=== PATIENT | male | born 1950 | race Caucasian/White ===

== ENCOUNTER 2016-05-16 09:09 | Outpatient (CLI) | payer MEDICARE, OTHER ==
[~2016-05-16 09:09] MED LIST: ACETAMINOPHEN 325 MG TABLET PO PRN; DIPHENHYDRAMINE HCL 50 MG/ML VIAL IV PRN; NORMAL SALINE 250 ML IV PRN; RITUXIMAB 1,000 MG in NORMAL SALINE 500 ML IV PRN
[2016-05-16 09:27] VITALS: BP 166/105
== END 2016-05-16 14:22 | disposition home or self-care (01) ==
LOC: II 09:09 → 5TH 09:15 → II 14:22
PROVIDERS: ATTEND Internal Medicine
PROC: 3E0330M Introduction of Antineoplastic, Monoclonal Antibody, into Peripheral Vein, Percutaneous Approach (ICD-10-PCS; principal; 2016-05-16)
DX: M06.9 Rheumatoid arthritis, unspecified (principal)
CPT/HCPCS: 96413; 96415; 96375; A9270; J1200; J7040; J9310; 96365; 96366

== ENCOUNTER 2016-06-03 07:49 | Outpatient (CLI) | payer MEDICARE, OTHER ==
[2016-06-03] MEDS: NORMAL SALINE 250 ML IV PRN ×2 (08:36→08:50)
[2016-06-03 08:38] VITALS: BP 116/77
== END 2016-06-03 13:39 | disposition hospice, inpatient (51) ==
LOC: II 07:49 → 5TH 07:52 → II 13:39
PROVIDERS: ATTEND Internal Medicine
PROC: 3E0330M Introduction of Antineoplastic, Monoclonal Antibody, into Peripheral Vein, Percutaneous Approach (ICD-10-PCS; principal; 2016-06-03)
PROC: 3E0330M Introduction of Antineoplastic, Monoclonal Antibody, into Peripheral Vein, Percutaneous Approach (ICD-10-PCS; 2016-06-03)
PROC: 3E0330M Introduction of Antineoplastic, Monoclonal Antibody, into Peripheral Vein, Percutaneous Approach (ICD-10-PCS; 2016-06-03)
PROC: 3E033GC Introduction of Other Therapeutic Substance into Peripheral Vein, Percutaneous Approach (ICD-10-PCS; 2016-06-03)
DX: M06.9 Rheumatoid arthritis, unspecified (principal)
CPT/HCPCS: 96413; 96415; 96375; A9270; J1200; J7040; J9310

== ENCOUNTER → 2016-09-11 | Outpatient (CLI) | payer MEDICARE, OTHER ==
[2016-09-11 16:43] LABS: ABSOLUTE BASOPHILS # (AUTO) 0.1 10^3/uL (0.0-0.2); ABSOLUTE EOSINOPHILS # (AUTO) 0.4 10^3/uL (0.0-0.6); ABSOLUTE LYMPHOCYTES (AUTO) 1.1 10^3/uL (0.5-4.7); ABSOLUTE MONOCYTES (AUTO) 1.3 10^3/uL (0.1-1.4); ABSOLUTE NEUT (AUTO) 8.1 10^3/uL (1.7-8.2); BASOPHILS % (AUTO) 0.9 % (0-2); EOSINOPHILS % (AUTO) 3.4 % (0-6); HEMATOCRIT 40.6 % (37.9-51.0); HEMOGLOBIN 13.6 g/dL (13.5-17.0); HGB HCT DIFFERENCE 0.2; LYMPHOCYTES % (AUTO) 9.9 % (13-45); MEAN CORPUSCULAR HEMOGLOBIN 28.8 pg (27.0-33.4); MEAN CORPUSCULAR HGB CONC 33.4 g/dL (32.0-36.0); MEAN CORPUSCULAR VOLUME 86 fl (80-97); MONOCYTES % (AUTO) 11.7 % (3-13); RED BLOOD COUNT 4.71 10^6/uL (4.35-5.55); RED CELL DISTRIBUTION WIDTH 13.9 % (11.5-14.0); SEGMENTED NEUTROPHILS % (AUTO) 74.1 % (42-78); WHITE BLOOD COUNT 10.9 10^3/uL (4.0-10.5)
== END ==
LOC: OD 16:08
PROVIDERS: ATTEND Internal Medicine Pulmonary Disease
DX: R05 Cough (principal)
CPT/HCPCS: 36415; 71020; 85025; 87070; 87205

== ENCOUNTER 2016-11-04 07:45 | Outpatient (CLI) | payer MEDICARE, OTHER ==
[2016-11-04 08:55] VITALS: BP 131/69
== END 2016-11-04 13:26 | disposition home or self-care (01) ==
LOC: II 07:45 → 5TH 07:57 → II 13:26
PROVIDERS: ATTEND Internal Medicine
PROC: 3E0330M Introduction of Antineoplastic, Monoclonal Antibody, into Peripheral Vein, Percutaneous Approach (ICD-10-PCS; principal; 2016-11-04)
PROC: 3E033GC Introduction of Other Therapeutic Substance into Peripheral Vein, Percutaneous Approach (ICD-10-PCS; 2016-11-04)
DX: M06.9 Rheumatoid arthritis, unspecified (principal)
CPT/HCPCS: 96413; 96415; 96374; 96417; A9270; J1200; J7040; J9310; 96375

== ENCOUNTER 2016-11-18 07:42 | Outpatient (CLI) | payer MEDICARE, OTHER ==
[2016-11-18 08:13] VITALS: BP 149/79
== END 2016-11-18 12:16 | disposition home or self-care (01) ==
LOC: II 07:42 → 5TH 07:45 → II 12:16
PROVIDERS: ATTEND Internal Medicine
PROC: 3E0330M Introduction of Antineoplastic, Monoclonal Antibody, into Peripheral Vein, Percutaneous Approach (ICD-10-PCS; principal; 2016-11-18)
PROC: 3E033GC Introduction of Other Therapeutic Substance into Peripheral Vein, Percutaneous Approach (ICD-10-PCS; 2016-11-18)
DX: M06.9 Rheumatoid arthritis, unspecified (principal)
CPT/HCPCS: 96413; 96415; 96375; A9270; J1200; J7040; J9310

== ENCOUNTER → 2017-03-06 | Outpatient (CLI) | payer MEDICARE, OTHER ==
[2017-03-06 11:01] LABS: ABSOLUTE BASOPHILS # (AUTO) 0.1 10^3/uL (0.0-0.2); ABSOLUTE EOSINOPHILS # (AUTO) 0.2 10^3/uL (0.0-0.6); ABSOLUTE LYMPHOCYTES (AUTO) 0.8 10^3/uL (0.5-4.7); ABSOLUTE MONOCYTES (AUTO) 0.7 10^3/uL (0.1-1.4); ABSOLUTE NEUT (AUTO) 5.5 10^3/uL (1.7-8.2); EOSINOPHILS % (AUTO) 2.5 % (0-6); HEMATOCRIT 42.4 % (37.9-51.0); HEMOGLOBIN 14.7 g/dL (13.5-17.0); HGB HCT DIFFERENCE 1.7; LYMPHOCYTES % (AUTO) 11.1 % (13-45); MEAN CORPUSCULAR HEMOGLOBIN 29.8 pg (27.0-33.4); MEAN CORPUSCULAR HGB CONC 34.7 g/dL (32.0-36.0); MEAN CORPUSCULAR VOLUME 86 fl (80-97); MONOCYTES % (AUTO) 9.7 % (3-13); RED BLOOD COUNT 4.95 10^6/uL (4.35-5.55); RED CELL DISTRIBUTION WIDTH 14.1 % (11.5-14.0); SEGMENTED NEUTROPHILS % (AUTO) 75.7 % (42-78); WHITE BLOOD COUNT 7.2 10^3/uL (4.0-10.5)
[2017-03-06 11:27] LABS: ALANINE AMINOTRANSFERASE 43 U/L (21-72); ALBUMIN 4.5 g/dL (3.5-5.0); ALKALINE PHOSPHATASE 88 U/L (38-126); AMYLASE 68 U/L (30-110); ANION GAP 11 (5-19); ASPARTATE AMINO TRANSFERASE 28 U/L (17-59); BILIRUBIN,DIRECT 0.4 mg/dL (0.0-0.4); BILIRUBIN,TOTAL 0.9 mg/dL (0.2-1.3); BLOOD UREA NITROGEN 13 mg/dL (7-20); CALCIUM 9.5 mg/dL (8.4-10.2); CARBON DIOXIDE 26 mmol/L (22-30); CHLORIDE 106 mmol/L (98-107); CHOLESTEROL 142.85 mg/dL (0-200); CREATININE RESULT 0.74 mg/dL (0.52-1.25); Direct HDL 49 mg/dL (>40); GLUCOSE 91 mg/dL (75-110); LIPASE 86.7 U/L (23-300); POTASSIUM 4.5 mmol/L (3.6-5.0); SODIUM 143.3 mmol/L (137-145); TOTAL PROTEIN 6.8 g/dL (6.3-8.2); TRIGLYCERIDES 65 mg/dL (<150)
[2017-03-06 11:38] LABS: DIRECT LDL 81 mg/dL (<100)
== END ==
LOC: OD 09:54
PROVIDERS: ATTEND Internal Medicine
DX: J44.9 Chronic obstructive pulmonary disease, unspecified (principal); R35.1 Nocturia; I48.0 Paroxysmal atrial fibrillation; R53.83 Other fatigue; E78.5 Hyperlipidemia, unspecified; R10.9 Unspecified abdominal pain; I10 Essential (primary) hypertension
CPT/HCPCS: 36415; 80053; 80061; 82150; 83690; 84153; 84443; 85025

== ENCOUNTER → 2017-03-26 | Outpatient (CLI) | payer MEDICARE, OTHER ==
--- NOTE | 2017-03-26 14:52 | RADIOLOGY REPORT (SQ) ---
EXAM DESCRIPTION: CT LUNG CANCER SCREENING COMPLETED DATE/TIME: 03/26/2017 1:42 pm REASON FOR STUDY: SMOKER (F17.200) J44.9 CHRONIC OBSTRUCTIVE PULMONARY DISEASE, UNSPECIFIED R05 CO [facility] F17.200 NICOTINE DEPENDENCE, UNSPECIFIED, UNCOMPLICATED Has the patient had a Chest CT scan within the past year? No Was the patient offered tobacco cessation counseling? Yes Was the patient engaged in shared decision making for this test? Yes Does the patient have signs or symptoms of Lung Cancer? No Is the patient a smoker? Yes How many packs per year? 365 How many years since quitting smoking? Not applicable Patients age: 66 COMPARISON: CT chest 12/18/2015 TECHNIQUE: Low Dose CT scan performed of the chest without intravenous contrast for purposes of scre ening for lung cancer. Images reviewed with lung, soft tissue and bone windows. Reconstructed coron al and sagittal MPR images reviewed. All images stored on PACS. All CT scanners at this facility use dose modulation, iterative reconstruction, and/or weight based d osing when appropriate to reduce radiation dose to as low as reasonably achievable (ALARA). [facility]: Dose Right [facility]: CareDose [facility]: Dose Right [facility]: Teradose 4D [facility]: Smart Fashion.me RADIATION DOSE: CT Rad equipment meets quality standard of care and radiation dose reduction techniq ues were employed. CTDIvol: 2.1 mGy. DLP: 91 mGy-cm. mGy. . LIMITATIONS: No technical limitations. FINDINGS: LUNG NODULES: Less than 4 mm noncalcified granulomas are present in the left lung apex ax ial image 68, unchanged from 12/18/2015. REMAINING LUNGS AND PLEURA: No pleural effusions or calcifications. No pneumothorax. Biapical p leural-parenchymal scarring, similar compared to 12/18/2015. Diffuse changes of obstructive lung dise ase. HILAR AND MEDIASTINAL STRUCTURES: No identified masses. No abnormal nodes. HEART AND VASCULAR STRUCTURES: No aortic aneurysm. No pericardial effusion. No cardiac devices. CORONARY ARTERY CALCIFICATIONS: No significant calcifications. UPPER ABDOMEN, THYROID, BONES, OTHER SOFT TISSUES: No significant findings. IMPRESSION: BENIGN FINDINGS IN THE LUNGS. NO OTHER CLINICALLY SIGNIFICANT/POTENTIALLY CLINICALLY SIGNIFICANT FINDINGS LUNGRADS: LUNGRADS: 2 BENIGN APPEARANCE OR BEHAVIOR. NODULES WITH A VERY LOW LIKELIHOOD OF BECOMING A CLINICALLY ACTIVE CANCER DUE TO SIZE OR LACK OF GROWTH. MODIFIER: NONE. RECOMMENDATION: Continue annual screening with LDCT in 12 months. COMMENT: CRITERIA: Solid nodule(s): < 6 mm; new < 4 mm. Part solid nodule(s): < 6 mm total diameter on baseline screening. Non solid nodule(s) (GGN): < 20 mm OR ? 20 and unchanged or slowly growing. Category 3 or 4 modules unchanged for ? 3 months. TECHNICAL DOCUMENTATION: JOB ID: [id number] Quality ID # [id number]: Final reports with documentation of one or more dose reduction techniques (e.g., Au tomated exposure control, adjustment of the mA and/or kV according to patient size, use of iterative reconstruction technique) 2010 [employer]
== END ==
LOC: RAD 13:23
PROVIDERS: ATTEND Internal Medicine
DX: F17.210 Nicotine dependence, cigarettes, uncomplicated (principal); J44.9 Chronic obstructive pulmonary disease, unspecified; R05 Cough
CPT/HCPCS: G0297

== ENCOUNTER 2017-04-21 10:17 | Outpatient (CLI) | payer MEDICARE, OTHER ==
[2017-04-21 15:02] VITALS: BP 150/95
== END 2017-04-21 15:09 | disposition home or self-care (01) ==
LOC: II 10:17 → 5TH 10:23 → II 15:09
PROVIDERS: ATTEND Internal Medicine
PROC: 3E0330M Introduction of Antineoplastic, Monoclonal Antibody, into Peripheral Vein, Percutaneous Approach (ICD-10-PCS; principal; 2017-04-21)
PROC: 3E033GC Introduction of Other Therapeutic Substance into Peripheral Vein, Percutaneous Approach (ICD-10-PCS; 2017-04-21)
DX: M06.9 Rheumatoid arthritis, unspecified (principal)
CPT/HCPCS: 96367; 96375; A9270; J1200; J7040; J9310; 96365; 96366

== ENCOUNTER 2017-05-05 04:09 | Inpatient (IN) | payer MEDICARE, OTHER ==
[2017-05-05] MEDS ORDERED: IPRATROPIUM/ALBUTEROL 0.5-2.5 MG/3 ML AMPUL NEB ONE ×3 (04:21→06:39)
[2017-05-05] MEDS ORDERED: METHYLPREDNISOLONE INJ 125 MG/2 ML SDV IV ONE (04:22)
--- NOTE | 2017-05-05 04:35 | ER Document Report ---
ED Respiratory Problem - General Mode of Arrival: Ambulatory Information source: Patient TRAVEL OUTSIDE OF THE [place] IN LAST 30 DAYS: No - HPI Patient complains to provider of: Short of breath Onset: Other - 2 days ago At home treatment: Bronchodilators Associated symptoms: Other - see notes above <NISHA CORREIA - Last Filed: 05/05/17 04:29> <JIHAN MEDELLIN - Last Filed: 05/05/17 06:10> - General Chief Complaint: Breathing Difficulty Stated Complaint: DIFFICULTY BREATHING Time Seen by Provider: 05/05/17 04:20 Notes: 66 year old male with history of COPD presents to the ED complaining of shortness of breath that started 2 days ago, but worsened last night. Patient reports that he had cold like symptoms 2 days ago which worsened his breathing. Patient has been taking nebulizer treatments every 3-4 hours since yesterday morning. (NISHA CORREIA) - Related Data Allergies/Adverse Reactions: No Known Allergies Allergy (Verified 04/07/16 14:21) Past Medical History - General Information source: Patient - Social History Smoking Status: Unknown if Ever Smoked Family History: Reviewed & Not Pertinent - Past Medical History Cardiac Medical History: Reports: Hx Hypercholesterolemia, Hx Hypertension Denies: Hx Heart Attack Pulmonary Medical History: Reports: Hx Asthma, Hx COPD - uses two at home nebulizer treatments every day Denies: Hx Tuberculosis Neurological Medical History: Denies: Hx Cerebrovascular Accident, Hx Seizures GI Medical History: Denies: Hx Hepatitis, Hx Hiatal Hernia, Hx Ulcer Musculoskeltal Medical History: Reports Hx Arthritis Infectious Medical History: Denies: Hx Hepatitis Past Surgical History: Reports: Hx Adenoidectomy, Hx Appendectomy, Hx Orthopedic Surgery, Hx Tonsillectomy, Hx Vascular Surgery - "vein stripping d/t blood clots" back surgery; cochlear implants. Denies: Hx Open Heart Surgery, Hx Pacemaker - Immunizations Hx Diphtheria, Pertussis, Tetanus Vaccination: Yes Hx Pneumococcal Vaccination: 02/08/11 <NISHA CORREIA - Last Filed: 05/05/17 04:29> Review of Systems - Review of Systems Constitutional: See HPI, Recent illness - cold like symptoms 2 days ago EENT: No symptoms reported Cardiovascular: No symptoms reported Respiratory: See HPI, Short of breath Gastrointestinal: No symptoms reported Genitourinary: No symptoms reported Male Genitourinary: No symptoms reported Musculoskeletal: No symptoms reported Skin: No symptoms reported Hematologic/Lymphatic: No symptoms reported Neurological/Psychological: No symptoms reported -: Yes All other systems reviewed and negative <NISHA CORREIA - Last Filed: 05/05/17 04:29> Physical Exam - Vital signs Interpretation: Hypertensive, Hypoxic, Tachypneic - General General appearance: Alert In distress: Moderate - HEENT Head: Normocephalic, Atraumatic Eyes: Normal Extraocular movements intact: Yes Pupils: PERRL - Respiratory Respiratory status: Respiratory distress - moderate respiratory distress, Retractions, Tachypnea, Tripod position Breath sounds: Wheezing - slight expiratory wheezing - Cardiovascular Rhythm: Regular Heart sounds: Normal auscultation - Abdominal Inspection: Normal - Back Back: Normal - Extremities General upper extremity: Normal inspection, Normal ROM General lower extremity: Normal inspection, Normal ROM - Neurological Neuro grossly intact: Yes Cognition: Normal Orientation: AAOx4 [place] Coma Scale Eye Opening: Spontaneous [place] Coma Scale Verbal: Oriented Nathanael Coma Scale Motor: Obeys Commands [place] Coma Scale Total: 15 Speech: Normal - Psychological Associated symptoms: Normal affect, Normal mood - Skin Skin Temperature: Warm Skin Moisture: Dry Skin Color: Normal <NISHA CORREIA - Last Filed: 05/05/17 04:29> - Vital signs Vitals: Temp Pulse Resp BP Pulse Ox 98.5 F 68 30 H 144/92 H 84 L 05/05/17 04:13 05/05/17 04:13 05/05/17 04:13 05/05/17 04:13 05/05/17 04:13 Course - Laboratory Result Diagrams: 05/05/17 04:40 05/05/17 04:40 <JIHAN MEDELLIN - Last Filed: 05/05/17 06:10> - Vital Signs Vital signs: Temp Pulse Resp BP Pulse Ox 98.5 F 68 22 H 144/92 H 100 05/05/17 04:13 05/05/17 04:13 05/05/17 05:38 05/05/17 04:13 05/05/17 05:38 - Laboratory Laboratory results interpreted by me: 05/05/17 05/05/17 05/05/17 04:40 04:40 05:23 WBC 12.2 H RDW 14.3 H Seg Neutrophils % 81.3 H Lymphocytes % 5.2 L Absolute Neutrophils 9.9 H PT 20.4 H POC Glucose 153 H Discharge <NISHA CORREIA - Last Filed: 05/05/17 04:29> - Discharge Admitting Provider: Hospitalist Unit Admitted: IMCU <JIHAN MEDELLIN - Last Filed: 05/05/17 06:10> - Discharge Clinical Impression: COPD exacerbation, Hypoxia Condition: Stable Disposition: ADMITTED INPATIENT Scribe Documentation - Scribe Written by Scribe:: Christy Chaney, 05/05/2017 0439 acting as scribe for :: Keli <NISHA CORREIA - Last Filed: 05/05/17 04:29>
[2017-05-05] MEDS: MAGNESIUM SULFATE/D5W 1 GM/100 ML RTUPB IV SCH ×2 (04:41→04:43)
[2017-05-05 05:00] LABS: ABSOLUTE BASOPHILS # (AUTO) 0.1 10^3/uL (0.0-0.2); ABSOLUTE EOSINOPHILS # (AUTO) 0.2 10^3/uL (0.0-0.6); ABSOLUTE LYMPHOCYTES (AUTO) 0.6 10^3/uL (0.5-4.7); ABSOLUTE MONOCYTES (AUTO) 1.4 10^3/uL (0.1-1.4); ABSOLUTE NEUT (AUTO) 9.9 10^3/uL (1.7-8.2); BASOPHILS % (AUTO) 0.4 % (0-2); EOSINOPHILS % (AUTO) 1.9 % (0-6); HEMATOCRIT 44.7 % (37.9-51.0); HEMOGLOBIN 15.2 g/dL (13.5-17.0); LYMPHOCYTES % (AUTO) 5.2 % (13-45); MEAN CORPUSCULAR HEMOGLOBIN 29.3 pg (27.0-33.4); MEAN CORPUSCULAR VOLUME 86 fl (80-97); MONOCYTES % (AUTO) 11.2 % (3-13); PLATELET COUNT 189 10^3/uL (150-450); RED BLOOD COUNT 5.18 10^6/uL (4.35-5.55); RED CELL DISTRIBUTION WIDTH 14.3 % (11.5-14.0); SEGMENTED NEUTROPHILS % (AUTO) 81.3 % (42-78); TOTAL CELLS COUNTED % (AUTO) 100 %; WHITE BLOOD COUNT 12.2 10^3/uL (4.0-10.5)
[2017-05-05 05:06] LABS: VENOUS BLOOD BASE EXCESS 0.4 mmol/L; VENOUS BLOOD HCO3 25.7 mmol/L (20-32); VENOUS BLOOD PCO2 43.9 mmHg (35-63); VENOUS BLOOD PH 7.39 (7.30-7.42)
[2017-05-05 05:09] LABS: INTERNATIONAL RATION (INR) 1.64; PROTHROMBIN TIME 20.4 SEC (11.4-15.4)
--- NOTE | 2017-05-05 05:25 | RADIOLOGY REPORT (SQ) ---
EXAM DESCRIPTION: CHEST SINGLE VIEW CLINICAL HISTORY: SOB COMPARISON: 09/11/2016 FINDINGS: Single frontal view of the chest. Tortuosity of the thoracic aorta. Leads overlie the chest. Heart is not enlarged. No consolidation, pneumothorax, or pleural effusion. Hyperinflation. No displaced rib fractures identified. Upper abdominal soft tissues are unremarkable. IMPRESSION: 1. No acute pulmonary process identified. Findings suggest obstructive lung disease.
[2017-05-05 05:26] LABS: ALANINE AMINOTRANSFERASE 33 U/L (21-72); ALBUMIN 4.9 g/dL (3.5-5.0); ALKALINE PHOSPHATASE 99 U/L (38-126); ANION GAP 13 (5-19); ASPARTATE AMINO TRANSFERASE 28 U/L (17-59); BILIRUBIN,DIRECT 0.3 mg/dL (0.0-0.4); BILIRUBIN,TOTAL 0.7 mg/dL (0.2-1.3); BLOOD UREA NITROGEN 10 mg/dL (7-20); CALCIUM 9.7 mg/dL (8.4-10.2); CARBON DIOXIDE 26 mmol/L (22-30); CHLORIDE 103 mmol/L (98-107); GLUCOSE 107 mg/dL (75-110); SODIUM 141.5 mmol/L (137-145); TOTAL PROTEIN 7.4 g/dL (6.3-8.2)
[2017-05-05] MEDS ORDERED: DOXYCYCLINE HYCLATE INJ 100 MG VIAL IV ONE (05:54)
[2017-05-05 06:13] LABS: APPEARANCE,URINE CLEAR; BILIRUBIN,URINE NEGATIVE (NEGATIVE); COLOR,URINE YELLOW; GLUCOSE, URINE NEGATIVE (NEGATIVE); KETONES,URINE NEGATIVE (NEGATIVE); LEUKOCYTE ESTERASE,URINE NEGATIVE (NEGATIVE); NITRITE,URINE NEGATIVE (NEGATIVE); PROTEIN,URINE NEGATIVE (NEGATIVE); URINE SPECIFIC GRAVITY 1.021; UROBILINOGEN,URINE NEGATIVE mg/dL (<2.0)
[2017-05-05 06:24] LABS: A TYPE INFLUENZA AG NEGATIVE (NEGATIVE); B INFLUENZA AG NEGATIVE (NEGATIVE)
[2017-05-05] MEDS ORDERED: LORAZEPAM INJ 2 MG/1 ML VIAL IV ONE (06:39)
--- NOTE | 2017-05-05 06:43 | EKG REPORT ---
SEVERITY:- ABNORMAL ECG - SINUS TACHYCARDIA PROBABLE LEFT ATRIAL ABNORMALITY LOW VOLTAGE IN FRONTAL LEADS BORDERLINE T ABNORMALITIES, ANT-LAT LEADS OLD ANTERIOR VA : Confirmed by: Kayode Stroud MD 05-May-2017 06:42:40
[2017-05-05] MEDS ORDERED: GUAIFENESIN SYRP 200 MG/10 ML UDC PO PRN (07:25)
[2017-05-05] MEDS ORDERED: HYDRALAZINE HCL INJ/PF 20 MG/1 ML SDV IV PRN (07:25)
--- NOTE | 2017-05-05 07:36 | PDOC H&P ---
History of Present Illness Admission Date/PCP: 05/05/17 06:18 BLANQUITA MAC, Patient complains of: Shortness of breath History of Present Illness: ANUJA NANCE is a 66 year old male with past medical history of, protein C and s deficiency on Coumadin, lupus on right toxin, COPD, Tobacco Dependence and chronic bronchitis. Patient presents with 24 hours of rhinorrhea, shortness of breath and nonproductive cough inducing sharp pleuritic chest pain. He denies uncontrolled GERD, headache, fever, palpitations nausea vomiting. Patient denies recent change in medications but has recently relapsed to smoking cigarettes. Past Medical History Cardiac Medical History: Reports: Hyperlipidema, Hypertension Denies: Myocardial Infarction Pulmonary Medical History: Reports: Asthma, Chronic Obstructive Pulmonary Disease (COPD) - uses two at home nebulizer treatments every day Denies: Tuberculosis Neurological Medical History: Denies: Seizures GI Medical History: Denies: Hepatitis, Hiatal Hernia Musculoskeltal Medical History: Reports: Arthritis Psychiatric Medical History: Reports: Tobacco Dependency Hematology: Denies: Anemia, Sickle Cell Disease Past Surgical History Past Surgical History: Reports: Appendectomy, Orthopedic Surgery, Tonsillectomy , Vascular Surgery - "vein stripping d/t blood clots" back surgery; cochlear implants Denies: Pacemaker Social History Information Source: Patient Lives with: Spouse/Significant other Smoking Status: Current Every Day Smoker Frequency of Alcohol Use: Rare Hx Recreational Drug Use: No Drugs: None Hx Prescription Drug Abuse: No - Advance Directive Resuscitation Status: Full Code Family History Family History: COPD Parental Family History Reviewed: Yes Children Family History Reviewed: Yes Sibling(s) Family History Reviewed.: Yes Medication/Allergy Home Medications: Albuterol Sulfate [Ventolin Hfa 8 gm Mdi (1 Mdi/ER Disp)] 2 puff IH Q4H PRN 04/11 Losartan Potassium 25 mg PO BID 04/07/16 Umeclidinium Brm/Vilanterol Tr [Anoro Ellipta 62.5-25 Mcg INH] 1 each IH DAILY 04/07/16 Fluticasone Propionate [Flovent Hfa 110 Mcg Inhalation Aerosol 12 gm] 2 puff IH Q12 #0 inhaler 04/10/16 Albuterol Sulfate [Albuterol Sulfate 2.5mg/3 mL] 1 vial IH Q4 PRN 05/05/17 Warfarin Sodium [Coumadin 2.5 mg Tablet] 5 mg PO QHS 05/05/17 Allergies/Adverse Reactions: No Known Allergies Allergy (Verified 04/07/16 14:21) Review of Systems Constitutional: ABSENT: chills, fever(s), headache(s), weight gain, weight loss Eyes: ABSENT: visual disturbances Ears: ABSENT: hearing changes Cardiovascular: ABSENT: chest pain, dyspnea on exertion, edema, orthropnea, palpitations Respiratory: ABSENT: cough, hemoptysis Gastrointestinal: ABSENT: abdominal pain, constipation, diarrhea, hematemesis, hematochezia, nausea, vomiting Genitourinary: ABSENT: dysuria, hematuria Musculoskeletal: ABSENT: joint swelling Integumentary: ABSENT: rash, wounds Neurological: ABSENT: abnormal gait, abnormal speech, confusion, dizziness, focal weakness, syncope Psychiatric: ABSENT: anxiety, depression, homidical ideation, suicidal ideation Endocrine: ABSENT: cold intolerance, heat intolerance, polydipsia, polyuria Hematologic/Lymphatic: ABSENT: easy bleeding, easy bruising Physical Exam Vital Signs: Temp Pulse Resp BP Pulse Ox 98.5 F 68 23 H 151/98 H 97 05/05/17 04:13 05/05/17 04:13 05/05/17 06:01 05/05/17 06:01 05/05/17 06:01 General appearance: PRESENT: cooperative, mild distress, thin Head exam: PRESENT: atraumatic, normocephalic Eye exam: PRESENT: conjunctiva pink, EOMI, PERRLA. ABSENT: scleral icterus Ear exam: PRESENT: bleeding Mouth exam: PRESENT: moist, tongue midline Neck exam: ABSENT: carotid bruit, JVD, lymphadenopathy, thyromegaly Respiratory exam: PRESENT: accessory muscle use, prolonged expiratory phas, retraction, tachypnea, wheezes. ABSENT: crackles Cardiovascular exam: PRESENT: RRR, tachycardia. ABSENT: diastolic murmur, rubs , systolic murmur Pulses: PRESENT: normal dorsalis pedis pul Vascular exam: PRESENT: normal capillary refill GI/Abdominal exam: PRESENT: normal bowel sounds, soft. ABSENT: distended, guarding, mass, organolmegaly, rebound, tenderness Rectal exam: PRESENT: deferred Extremities exam: PRESENT: full ROM. ABSENT: calf tenderness, clubbing, pedal edema Neurological exam: PRESENT: alert, awake, oriented to person, oriented to place , oriented to time, oriented to situation, CN II-XII grossly intact. ABSENT: motor sensory deficit Psychiatric exam: PRESENT: appropriate affect, normal mood. ABSENT: homicidal ideation, suicidal ideation Skin exam: PRESENT: dry, intact, warm. ABSENT: cyanosis, rash Results Impressions: Chest X-Ray 05/05/17 04:21 IMPRESSION: 1. No acute pulmonary process identified. Findings suggest obstructive lung disease. Assessment & Plan - Diagnosis (1) Acute exacerbation of chronic bronchitis Is this a current diagnosis for this admission?: Yes Plan: Telemetry bed, Flonase, chlorpheniramine, albuterol and Atrovent, empiric antibiotics. Supplemental oxygen flutter valve and education (2) COPD exacerbation Is this a current diagnosis for this admission?: Yes Plan: Secondary to #1, pulse steroids, supplemental oxygen peak flow and education (3) Tobacco abuse Is this a current diagnosis for this admission?: Yes Plan: Tobacco Dependence patient received tobacco cessation counseling and offered nicotine replacement options - Time Time Spent: 30 to 50 Minutes - Inpatient Certification Medical Necessity: Need Close Monitoring Due to Risk of Patient Decompensation
[2017-05-05] MEDS: IPRATROPIUM/ALBUTEROL 0.5-2.5 MG/3 ML AMPUL NEB SCH ×3 (08:24→21:20)
[2017-05-05] MEDS ORDERED: CHLORPHENIRAMINE MALEATE 4 MG TABLET PO ONE ×2 (08:30→09:30)
[2017-05-05] MEDS: GUAIFENESIN 600 MG TABLET.SA PO SCH ×2 (09:19→23:08)
[2017-05-05] MEDS: LOSARTAN POTASSIUM 25 MG TABLET PO SCH ×2 (09:20→23:09)
[2017-05-05] MEDS: PREDNISONE 20 MG TABLET PO SCH ×2 (09:20→17:09)
[2017-05-05] MEDS: FLUTICASONE PROPIONATE HFA 110 MCG/PUFF 12 GM MDI IH SCH ×2 (09:21→23:10)
[2017-05-05] MEDS: FLUTICASONE NASAL SPRAY 50 MCG/SPRY 120 SPRAY/16 GM NASL SCH ×2 (09:48→23:10)
[2017-05-05] MEDS: CEFEPIME 2 GM/D5W RTU 2 GM/50 ML RTUPB IV SCH ×2 (09:48→23:07)
[2017-05-05] MEDS ORDERED: LOSARTAN POTASSIUM 25 MG TABLET PO SCH (10:00)
[2017-05-05] MEDS: ACETAMINOPHEN 325 MG TABLET PO PRN (17:08)
[2017-05-05] MEDS: LANSOPRAZOLE 15 MG TAB.RAP.DR PO SCH (17:08)
[2017-05-05] MEDS ORDERED: (PENDING PHARMACY ID) (Warfarin Sodium 5 MG) PO SCH (22:00)
[2017-05-05] MEDS: WARFARIN SODIUM 5 MG TABLET PO SCH (23:09)
[2017-05-06] MEDS: IPRATROPIUM/ALBUTEROL 0.5-2.5 MG/3 ML AMPUL NEB PRN ×3 (00:11→17:09)
[2017-05-06] MEDS: IPRATROPIUM/ALBUTEROL 0.5-2.5 MG/3 ML AMPUL NEB SCH ×4 (01:51→20:50)
[2017-05-06] MEDS: LANSOPRAZOLE 15 MG TAB.RAP.DR PO SCH ×2 (06:40→17:15)
[2017-05-06] MEDS: ACETAMINOPHEN 325 MG TABLET PO PRN ×2 (08:22→17:14)
[2017-05-06 08:45] LABS: ABSOLUTE LYMPHOCYTES (AUTO) 0.8 10^3/uL (0.5-4.7); ABSOLUTE MONOCYTES (AUTO) 1.6 10^3/uL (0.1-1.4); ABSOLUTE NEUT (AUTO) 9.6 10^3/uL (1.7-8.2); BASOPHILS % (AUTO) 0.1 % (0-2); HEMATOCRIT 39.7 % (37.9-51.0); HEMOGLOBIN 13.6 g/dL (13.5-17.0); LYMPHOCYTES % (AUTO) 6.9 % (13-45); MEAN CORPUSCULAR HEMOGLOBIN 29.2 pg (27.0-33.4); MEAN CORPUSCULAR HGB CONC 34.1 g/dL (32.0-36.0); MEAN CORPUSCULAR VOLUME 86 fl (80-97); MONOCYTES % (AUTO) 13.5 % (3-13); PLATELET COUNT 185 10^3/uL (150-450); RED BLOOD COUNT 4.64 10^6/uL (4.35-5.55); RED CELL DISTRIBUTION WIDTH 14.1 % (11.5-14.0); SEGMENTED NEUTROPHILS % (AUTO) 79.5 % (42-78); TOTAL CELLS COUNTED % (AUTO) 100 %; WHITE BLOOD COUNT 12.1 10^3/uL (4.0-10.5)
[2017-05-06 09:03] LABS: ANION GAP 14 (5-19); BLOOD UREA NITROGEN 20 mg/dL (7-20); CARBON DIOXIDE 22 mmol/L (22-30); CHLORIDE 105 mmol/L (98-107); GLUCOSE 111 mg/dL (75-110); SODIUM 141.4 mmol/L (137-145)
--- NOTE | 2017-05-06 10:17 | RADIOLOGY REPORT (SQ) ---
EXAM DESCRIPTION: CHEST PA/LAT COMPLETED DATE/TIME: 05/06/2017 9:59 am REASON FOR STUDY: COPD COMPARISON: 2016. 2017 CT chest. TECHNIQUE: Frontal and lateral radiographic views of the chest acquired. NUMBER OF VIEWS: Two view. LIMITATIONS: None. FINDINGS: LUNGS AND PLEURA: No developing nodules or masses or infiltrates. Chronic changes suggest ing underlying COPD and scarring. MEDIASTINUM AND HILAR STRUCTURES: No masses or contour abnormalities. HEART AND VASCULAR STRUCTURES: Heart normal size. No evidence for failure. BONES: No acute findings. HARDWARE: None in the chest. OTHER: No other significant finding. IMPRESSION: Stable chest. Chronic changes without acute cardiopulmonary disease. TECHNICAL DOCUMENTATION: JOB ID: [id number] [employer] All Rights Reserved
[2017-05-06] MEDS: GUAIFENESIN 600 MG TABLET.SA PO SCH ×2 (10:20→22:08)
[2017-05-06] MEDS: LEVOFLOXACIN 500 MG TABLET PO SCH (10:20)
[2017-05-06] MEDS: PREDNISONE 20 MG TABLET PO SCH ×2 (10:21→17:15)
[2017-05-06] MEDS: LOSARTAN POTASSIUM 25 MG TABLET PO SCH (10:21)
[2017-05-06] MEDS: FLUTICASONE NASAL SPRAY 50 MCG/SPRY 120 SPRAY/16 GM NASL SCH ×2 (10:21→22:08)
[2017-05-06] MEDS: FLUTICASONE PROPIONATE HFA 110 MCG/PUFF 12 GM MDI IH SCH ×2 (10:22→22:09)
[2017-05-06] MEDS ORDERED: CEFEPIME HCL 2 GM in DEXTROSE 5%-WATER 50 ML IV ONE (12:00)
--- NOTE | 2017-05-06 13:28 | PDOC PROGRESS REPORT ---
Subjective Progress Note for:: 05/06/17 Subjective:: The patient appears to be slightly less short of breath. He is still very tachypneic and cannot speak in full sentences. He is presently off the BiPAP Reason For Visit: COPD EXACERBATION Physical Exam Vital Signs: Temp Pulse Resp BP Pulse Ox 97.7 F 105 H 20 135/80 H 95 05/06/17 11:50 05/06/17 11:50 05/06/17 11:50 05/06/17 11:50 05/06/17 11:50 General appearance: PRESENT: severe distress Head exam: PRESENT: atraumatic Eye exam: PRESENT: conjunctival injection Neck exam: ABSENT: carotid bruit Respiratory exam: PRESENT: decreased breath sounds, prolonged expiratory phas, rhonchi, wheezes Cardiovascular exam: PRESENT: +S1, +S2 Pulses: PRESENT: +1 pedal pulses bilateral Vascular exam: PRESENT: normal capillary refill GI/Abdominal exam: PRESENT: normal bowel sounds, soft Extremities exam: PRESENT: full ROM Musculoskeletal exam: PRESENT: ambulatory Neurological exam: PRESENT: alert, awake Results Impressions: Chest X-Ray 05/06/17 00:00 IMPRESSION: Stable chest. Chronic changes without acute cardiopulmonary disease. Assessment & Plan - Diagnosis (1) Acute exacerbation of chronic bronchitis Is this a current diagnosis for this admission?: Yes Plan: Continue nebulization treatments and increase steroids (2) COPD exacerbation Is this a current diagnosis for this admission?: Yes Plan: Increased dose of steroids and use the BiPAP as needed (3) Hypoxia Is this a current diagnosis for this admission?: Yes Plan: Continue O2 and BiPAP (4) Pneumonia Qualifiers: Pneumonia type: due to group B Streptococcus Laterality: unspecified laterality Lung location: unspecified part of lung Qualified Code(s): J15.3 - Pneumonia due to streptococcus, group B Is this a current diagnosis for this admission?: Yes Plan: Continue with antibiotics (5) Tobacco abuse Is this a current diagnosis for this admission?: Yes Plan: Smoking cessation
[2017-05-06] MEDS: CEFEPIME HCL 2 GM in DEXTROSE 5%-WATER 50 ML IV SCH (22:07)
[2017-05-06] MEDS: WARFARIN SODIUM 5 MG TABLET PO SCH (22:09)
[2017-05-07] MEDS: IPRATROPIUM/ALBUTEROL 0.5-2.5 MG/3 ML AMPUL NEB SCH ×4 (02:26→20:10)
[2017-05-07] MEDS: LANSOPRAZOLE 15 MG TAB.RAP.DR PO SCH ×2 (06:29→16:46)
--- NOTE | 2017-05-07 08:12 | PDOC PROGRESS REPORT ---
Subjective Progress Note for:: 05/07/17 Subjective:: The patient states to feel slightly better. He is still very short of breath and has a lot of cough. Reason For Visit: COPD EXACERBATION Physical Exam Vital Signs: Temp Pulse Resp BP Pulse Ox 97.6 F 80 20 117/65 95 05/07/17 04:00 05/07/17 04:00 05/07/17 04:00 05/07/17 04:00 05/07/17 04:00 Intake & Output 05/06/17 05/07/17 05/08/17 06:59 06:59 06:59 Intake Total 2434 Balance 2434 Weight 66.4 kg General appearance: PRESENT: mild distress Head exam: PRESENT: atraumatic Eye exam: PRESENT: conjunctiva pink Neck exam: ABSENT: carotid bruit, JVD Respiratory exam: PRESENT: decreased breath sounds, rhonchi, wheezes Cardiovascular exam: PRESENT: RRR, +S1, +S2 GI/Abdominal exam: PRESENT: normal bowel sounds, soft Musculoskeletal exam: PRESENT: ambulatory Neurological exam: PRESENT: alert, awake Results Impressions: Chest X-Ray 05/06/17 00:00 IMPRESSION: Stable chest. Chronic changes without acute cardiopulmonary disease. Assessment & Plan - Diagnosis (1) Acute exacerbation of chronic bronchitis Is this a current diagnosis for this admission?: Yes Plan: Continue nebulization treatments and increase steroids (2) COPD exacerbation Is this a current diagnosis for this admission?: Yes Plan: Increased dose of steroids and use the BiPAP as needed (3) Hypoxia Is this a current diagnosis for this admission?: Yes (4) Pneumonia Qualifiers: Pneumonia type: due to group B Streptococcus Laterality: unspecified laterality Lung location: unspecified part of lung Qualified Code(s): J15.3 - Pneumonia due to streptococcus, group B Is this a current diagnosis for this admission?: Yes Plan: Continue with antibiotics (5) Tobacco abuse Is this a current diagnosis for this admission?: Yes Plan: Smoking cessation
[2017-05-07] MEDS ORDERED: PREDNISONE 20 MG TABLET PO ONE (09:00)
[2017-05-07] MEDS: POLYETHYLENE GLYCOL 3350 POWDER 17 GM/1 PACKET PO SCH (11:11)
[2017-05-07] MEDS: GUAIFENESIN 600 MG TABLET.SA PO SCH ×2 (11:15→21:32)
[2017-05-07] MEDS: LOSARTAN POTASSIUM 25 MG TABLET PO SCH (11:16)
[2017-05-07] MEDS: LEVOFLOXACIN 500 MG TABLET PO SCH (11:16)
[2017-05-07] MEDS: DOCUSATE SODIUM 100 MG CAPSULE PO SCH ×2 (11:16→17:37)
[2017-05-07] MEDS: FLUTICASONE NASAL SPRAY 50 MCG/SPRY 120 SPRAY/16 GM NASL SCH ×2 (11:18→21:32)
[2017-05-07] MEDS: CEFEPIME HCL 2 GM in DEXTROSE 5%-WATER 50 ML IV SCH ×2 (11:18→21:33)
[2017-05-07] MEDS: FLUTICASONE PROPIONATE HFA 110 MCG/PUFF 12 GM MDI IH SCH ×2 (11:18→21:33)
[2017-05-07] MEDS: ACETAMINOPHEN 325 MG TABLET PO PRN (15:40)
[2017-05-07] MEDS: PREDNISONE 20 MG TABLET PO SCH (17:36)
[2017-05-07] MEDS: WARFARIN SODIUM 5 MG TABLET PO SCH (21:32)
[2017-05-08] MEDS: IPRATROPIUM/ALBUTEROL 0.5-2.5 MG/3 ML AMPUL NEB SCH ×4 (02:03→20:20)
[2017-05-08] MEDS: LANSOPRAZOLE 15 MG TAB.RAP.DR PO SCH ×2 (05:50→18:30)
[2017-05-08 08:51] LABS: ABSOLUTE LYMPHOCYTES (AUTO) 1.4 10^3/uL (0.5-4.7); ABSOLUTE MONOCYTES (AUTO) 1.2 10^3/uL (0.1-1.4); BASOPHILS % (AUTO) 0.1 % (0-2); HEMATOCRIT 41.1 % (37.9-51.0); HEMOGLOBIN 14.1 g/dL (13.5-17.0); LYMPHOCYTES % (AUTO) 10.2 % (13-45); MEAN CORPUSCULAR HEMOGLOBIN 29.3 pg (27.0-33.4); MEAN CORPUSCULAR HGB CONC 34.2 g/dL (32.0-36.0); MEAN CORPUSCULAR VOLUME 86 fl (80-97); MONOCYTES % (AUTO) 8.9 % (3-13); PLATELET COUNT 202 10^3/uL (150-450); RED BLOOD COUNT 4.81 10^6/uL (4.35-5.55); RED CELL DISTRIBUTION WIDTH 14.1 % (11.5-14.0); SEGMENTED NEUTROPHILS % (AUTO) 80.8 % (42-78); TOTAL CELLS COUNTED % (AUTO) 100 %; WHITE BLOOD COUNT 13.6 10^3/uL (4.0-10.5)
[2017-05-08 08:58] LABS: INTERNATIONAL RATION (INR) 1.95; PROTHROMBIN TIME 23.3 SEC (11.4-15.4)
[2017-05-08 09:19] LABS: ALANINE AMINOTRANSFERASE 40 U/L (21-72); ALBUMIN 4.1 g/dL (3.5-5.0); ALKALINE PHOSPHATASE 70 U/L (38-126); ANION GAP 11 (5-19); ASPARTATE AMINO TRANSFERASE 31 U/L (17-59); BILIRUBIN,DIRECT 0.3 mg/dL (0.0-0.4); BILIRUBIN,TOTAL 0.6 mg/dL (0.2-1.3); BLOOD UREA NITROGEN 26 mg/dL (7-20); CALCIUM 9.7 mg/dL (8.4-10.2); CARBON DIOXIDE 28 mmol/L (22-30); CHLORIDE 102 mmol/L (98-107); GLUCOSE 84 mg/dL (75-110); MAGNESIUM 2.3 mg/dL (1.6-2.3); POTASSIUM 4.5 mmol/L (3.6-5.0); SODIUM 141.1 mmol/L (137-145); TOTAL PROTEIN 6.3 g/dL (6.3-8.2)
--- NOTE | 2017-05-08 09:42 | PDOC PROGRESS REPORT ---
Subjective Progress Note for:: 05/08/17 Subjective:: The patient states to feel better. He is still having some shortness of breath but it is improving. His cough has improved. Reason For Visit: COPD EXACERBATION Physical Exam Vital Signs: Temp Pulse Resp BP Pulse Ox 97.4 F 61 18 139/74 H 97 05/08/17 07:18 05/08/17 07:18 05/08/17 07:18 05/08/17 07:18 05/08/17 07:18 Intake & Output 05/07/17 05/08/17 05/09/17 06:59 06:59 06:59 Intake Total 2434 1194 Balance 2434 1194 Weight 66.4 kg 65.3 kg General appearance: PRESENT: mild distress Head exam: PRESENT: atraumatic Eye exam: PRESENT: conjunctiva pink Neck exam: ABSENT: JVD Respiratory exam: PRESENT: rhonchi. ABSENT: wheezes Cardiovascular exam: PRESENT: RRR, +S2 Pulses: PRESENT: +1 pedal pulses bilateral GI/Abdominal exam: PRESENT: normal bowel sounds, soft Extremities exam: PRESENT: full ROM Musculoskeletal exam: PRESENT: ambulatory Neurological exam: PRESENT: alert, awake Results Laboratory Results: 05/08/17 07:50 05/08/17 07:50 05/08/17 05/08/17 07:50 07:50 WBC 13.6 H RBC 4.81 Hgb 14.1 Hct 41.1 MCV 86 MCH 29.3 MCHC 34.2 RDW 14.1 H Plt Count 202 Seg Neutrophils % 80.8 H Lymphocytes % 10.2 L Monocytes % 8.9 Eosinophils % 0.0 Basophils % 0.1 Absolute Neutrophils 11.0 H Absolute Lymphocytes 1.4 Absolute Monocytes 1.2 Absolute Eosinophils 0.0 Absolute Basophils 0.0 Sodium 141.1 Potassium 4.5 Chloride 102 Carbon Dioxide 28 Anion Gap 11 BUN 26 H Creatinine 0.74 Est GFR ( Amer) > 60 Est GFR (Non-Af Amer) > 60 Glucose 84 Calcium 9.7 Magnesium 2.3 Total Bilirubin 0.6 AST 31 ALT 40 Alkaline Phosphatase 70 Total Protein 6.3 Albumin 4.1 Impressions: Chest X-Ray 05/06/17 00:00 IMPRESSION: Stable chest. Chronic changes without acute cardiopulmonary disease. Assessment & Plan - Diagnosis (1) Acute exacerbation of chronic bronchitis Is this a current diagnosis for this admission?: Yes Plan: Continue nebulization treatments and increase steroids (2) COPD exacerbation Is this a current diagnosis for this admission?: Yes Plan: Increased dose of steroids and use the BiPAP as needed (3) Hypoxia Is this a current diagnosis for this admission?: Yes Plan: Continue O2 and BiPAP (4) Pneumonia Qualifiers: Pneumonia type: due to group B Streptococcus Laterality: unspecified laterality Lung location: unspecified part of lung Qualified Code(s): J15.3 - Pneumonia due to streptococcus, group B Is this a current diagnosis for this admission?: Yes Plan: Continue with antibiotics (5) Tobacco abuse Is this a current diagnosis for this admission?: Yes Plan: Smoking cessation
[2017-05-08 10:23] LABS: ARTERIAL BLOOD BASE EXCESS 1.7 mmol/L; ARTERIAL BLOOD HCO3 25.2 mmol/L (20-26); ARTERIAL BLOOD O2 SATURATION 97.8 % (94-98); ARTERIAL BLOOD PCO2 36.4 mmHg (35-45); ARTERIAL BLOOD PH 7.46 (7.35-7.45); ARTERIAL BLOOD TOTAL CO2 26.4 mmol/L (23-27)
[2017-05-08 10:29] LABS: ARTERIAL BLOOD FIO2 1L
[2017-05-08] MEDS: LOSARTAN POTASSIUM 25 MG TABLET PO SCH (10:40)
[2017-05-08] MEDS: PREDNISONE 20 MG TABLET PO SCH ×2 (10:40→18:29)
[2017-05-08] MEDS: GUAIFENESIN 600 MG TABLET.SA PO SCH ×2 (10:41→21:59)
[2017-05-08] MEDS: LEVOFLOXACIN 500 MG TABLET PO SCH (10:41)
[2017-05-08] MEDS: FLUTICASONE PROPIONATE HFA 110 MCG/PUFF 12 GM MDI IH SCH ×2 (10:41→21:58)
[2017-05-08] MEDS: FLUTICASONE NASAL SPRAY 50 MCG/SPRY 120 SPRAY/16 GM NASL SCH ×2 (10:42→21:58)
[2017-05-08] MEDS: CEFEPIME HCL 2 GM in DEXTROSE 5%-WATER 50 ML IV SCH ×2 (10:43→22:00)
[2017-05-08] MEDS: POLYETHYLENE GLYCOL 3350 POWDER 17 GM/1 PACKET PO SCH (10:44)
[2017-05-08] MEDS: DOCUSATE SODIUM 100 MG CAPSULE PO SCH ×2 (10:44→18:31)
[2017-05-08] MEDS: IPRATROPIUM/ALBUTEROL 0.5-2.5 MG/3 ML AMPUL NEB PRN (17:00)
[2017-05-08] MEDS: WARFARIN SODIUM 5 MG TABLET PO SCH (21:59)
[2017-05-09] MEDS: IPRATROPIUM/ALBUTEROL 0.5-2.5 MG/3 ML AMPUL NEB SCH ×4 (02:06→20:26)
[2017-05-09 05:00] LABS: INTERNATIONAL RATION (INR) 1.74; PROTHROMBIN TIME 21.3 SEC (11.4-15.4)
[2017-05-09] MEDS: LANSOPRAZOLE 15 MG TAB.RAP.DR PO SCH ×2 (06:41→18:36)
[2017-05-09] MEDS: LEVOFLOXACIN 500 MG TABLET PO SCH (11:18)
[2017-05-09] MEDS: PREDNISONE 20 MG TABLET PO SCH ×2 (11:18→18:37)
[2017-05-09] MEDS: CEFEPIME HCL 2 GM in DEXTROSE 5%-WATER 50 ML IV SCH ×2 (11:19→22:02)
[2017-05-09] MEDS: GUAIFENESIN 600 MG TABLET.SA PO SCH ×2 (11:19→22:00)
[2017-05-09] MEDS: LOSARTAN POTASSIUM 25 MG TABLET PO SCH (11:19)
[2017-05-09] MEDS: FLUTICASONE PROPIONATE HFA 110 MCG/PUFF 12 GM MDI IH SCH ×2 (11:21→22:01)
[2017-05-09] MEDS: FLUTICASONE NASAL SPRAY 50 MCG/SPRY 120 SPRAY/16 GM NASL SCH ×2 (11:22→22:06)
[2017-05-09] MEDS: POLYETHYLENE GLYCOL 3350 POWDER 17 GM/1 PACKET PO SCH (11:23)
[2017-05-09] MEDS: DOCUSATE SODIUM 100 MG CAPSULE PO SCH ×2 (11:23→18:39)
[2017-05-09] MEDS: WARFARIN SODIUM 5 MG TABLET PO SCH (22:00)
[2017-05-10] MEDS: IPRATROPIUM/ALBUTEROL 0.5-2.5 MG/3 ML AMPUL NEB SCH ×4 (02:07→20:07)
[2017-05-10] MEDS: LANSOPRAZOLE 15 MG TAB.RAP.DR PO SCH ×2 (05:45→18:18)
[2017-05-10 07:09] LABS: INTERNATIONAL RATION (INR) 1.87; PROTHROMBIN TIME 22.5 SEC (11.4-15.4)
[2017-05-10] MEDS: LEVOFLOXACIN 500 MG TABLET PO SCH (10:01)
[2017-05-10] MEDS: DOCUSATE SODIUM 100 MG CAPSULE PO SCH ×2 (10:01→18:14)
[2017-05-10] MEDS: PREDNISONE 20 MG TABLET PO SCH ×2 (10:02→18:14)
[2017-05-10] MEDS: LOSARTAN POTASSIUM 25 MG TABLET PO SCH (10:02)
[2017-05-10] MEDS: GUAIFENESIN 600 MG TABLET.SA PO SCH ×2 (10:02→21:45)
--- NOTE | 2017-05-10 10:02 | PDOC PROGRESS REPORT ---
Subjective Progress Note for:: 05/09/17 Subjective:: Pt states that he is doing better breathing but he continues to cough. Reason For Visit: COPD EXACERBATION Physical Exam Vital Signs: Temp Pulse Resp BP Pulse Ox 98.0 F 75 19 125/67 97 05/10/17 03:29 05/10/17 03:29 05/10/17 03:29 05/10/17 03:29 05/10/17 03:29 Intake & Output 05/09/17 05/10/17 05/11/17 06:59 06:59 06:59 Intake Total 193 2164 Output Total 800 Balance 1939 1364 Weight 65.9 kg 65.7 kg General appearance: PRESENT: no acute distress, well-developed, well-nourished Head exam: PRESENT: atraumatic, normocephalic Eye exam: PRESENT: conjunctiva pink, EOMI. ABSENT: scleral icterus Ear exam: PRESENT: normal external ear exam Neck exam: ABSENT: carotid bruit, JVD, lymphadenopathy, thyromegaly Respiratory exam: PRESENT: clear to auscultation jayy, prolonged expiratory phas , other - +cough. ABSENT: rales, rhonchi, wheezes Cardiovascular exam: PRESENT: RRR. ABSENT: diastolic murmur, rubs, systolic murmur Pulses: PRESENT: normal dorsalis pedis pul Vascular exam: PRESENT: normal capillary refill GI/Abdominal exam: PRESENT: normal bowel sounds, soft. ABSENT: distended, guarding, mass, organolmegaly, rebound, tenderness Rectal exam: PRESENT: deferred Extremities exam: PRESENT: full ROM. ABSENT: calf tenderness, clubbing, pedal edema Neurological exam: PRESENT: alert, awake, oriented to person, oriented to place , oriented to time, oriented to situation, CN II-XII grossly intact. ABSENT: motor sensory deficit Psychiatric exam: PRESENT: appropriate affect, normal mood. ABSENT: homicidal ideation, suicidal ideation Skin exam: PRESENT: dry, intact, warm. ABSENT: cyanosis, rash Results Laboratory Results: 05/08/17 07:50 05/08/17 07:50 05/07/17 08:30 Sputum Gram Stain - Final 05/07/17 08:30 Sputum Sputum Culture - Final C.albicans/C.dubliniensis Reduced Normal Mei Impressions: Chest X-Ray 05/06/17 00:00 IMPRESSION: Stable chest. Chronic changes without acute cardiopulmonary disease. Assessment & Plan - Diagnosis (1) Acute exacerbation of chronic bronchitis Is this a current diagnosis for this admission?: Yes Plan: Will continue current treatment. Will add Tessalon Pearls PRN. (2) COPD exacerbation Is this a current diagnosis for this admission?: Yes Plan: Will continue current treatment. Will add Tessalon Pearls. (3) Hypoxia Is this a current diagnosis for this admission?: Yes (4) Pneumonia Qualifiers: Pneumonia type: due to group B Streptococcus Laterality: unspecified laterality Lung location: unspecified part of lung Qualified Code(s): J15.3 - Pneumonia due to streptococcus, group B Is this a current diagnosis for this admission?: Yes Plan: Will continue antibiotic. (5) Tobacco abuse Is this a current diagnosis for this admission?: Yes Plan: Supportive care. - Time Time Spent with patient: Less than 15 minutes
[2017-05-10] MEDS: FLUTICASONE PROPIONATE HFA 110 MCG/PUFF 12 GM MDI IH SCH ×2 (10:03→21:46)
[2017-05-10] MEDS: FLUTICASONE NASAL SPRAY 50 MCG/SPRY 120 SPRAY/16 GM NASL SCH ×2 (10:03→21:45)
[2017-05-10] MEDS: CEFEPIME HCL 2 GM in DEXTROSE 5%-WATER 50 ML IV SCH ×2 (10:06→21:52)
[2017-05-10] MEDS: POLYETHYLENE GLYCOL 3350 POWDER 17 GM/1 PACKET PO SCH (10:06)
--- NOTE | 2017-05-10 15:07 | PDOC PROGRESS REPORT ---
Subjective Progress Note for:: 05/10/17 Subjective:: Pt states that he is not coughing as much. Pt states that he is feeling better. Nursing states that pt has been ambulating around in room. Reason For Visit: COPD EXACERBATION Physical Exam Vital Signs: Temp Pulse Resp BP Pulse Ox 98.0 F 84 18 125/74 94 05/10/17 11:44 05/10/17 11:44 05/10/17 11:44 05/10/17 11:44 05/10/17 11:44 Intake & Output 05/09/17 05/10/17 05/11/17 06:59 06:59 06:59 Intake Total 1939 2164 Output Total 800 Balance 1939 1364 Weight 65.9 kg 65.7 kg General appearance: PRESENT: no acute distress, well-developed, well-nourished Head exam: PRESENT: atraumatic, normocephalic Eye exam: PRESENT: conjunctiva pink, EOMI. ABSENT: scleral icterus Ear exam: PRESENT: normal external ear exam Mouth exam: PRESENT: moist, tongue midline Neck exam: ABSENT: carotid bruit, JVD, lymphadenopathy, thyromegaly Respiratory exam: PRESENT: wheezes, other - + scant wheezing today, Improved airmovement, + accessory muscle use but improved from yesterday.. ABSENT: rales , rhonchi Cardiovascular exam: PRESENT: RRR. ABSENT: diastolic murmur, rubs, systolic murmur Pulses: PRESENT: normal dorsalis pedis pul Vascular exam: PRESENT: normal capillary refill GI/Abdominal exam: PRESENT: normal bowel sounds, soft. ABSENT: distended, guarding, mass, organolmegaly, rebound, tenderness Rectal exam: PRESENT: deferred Extremities exam: PRESENT: full ROM. ABSENT: calf tenderness, clubbing, pedal edema Musculoskeletal exam: PRESENT: full ROM Neurological exam: PRESENT: alert, awake, oriented to person, oriented to place , oriented to time, oriented to situation, CN II-XII grossly intact. ABSENT: motor sensory deficit Skin exam: PRESENT: dry, intact, warm. ABSENT: cyanosis, rash Results Laboratory Results: 05/08/17 07:50 05/08/17 07:50 05/07/17 08:30 Sputum Gram Stain - Final 05/07/17 08:30 Sputum Sputum Culture - Final C.albicans/C.dubliniensis Reduced Normal Mei Impressions: Chest X-Ray 05/06/17 00:00 IMPRESSION: Stable chest. Chronic changes without acute cardiopulmonary disease. Assessment & Plan - Diagnosis (1) Acute exacerbation of chronic bronchitis Is this a current diagnosis for this admission?: Yes Plan: Will continue current treatment. Will continue Tessalon Pearls PRN. (2) COPD exacerbation Is this a current diagnosis for this admission?: Yes Plan: Will continue current treatment. Will continue Tessalon Pearls. (3) Hypoxia Is this a current diagnosis for this admission?: Yes Plan: Improving. Will continue breathing treatments. (4) Pneumonia Qualifiers: Pneumonia type: due to group B Streptococcus Laterality: unspecified laterality Lung location: unspecified part of lung Qualified Code(s): J15.3 - Pneumonia due to streptococcus, group B Is this a current diagnosis for this admission?: Yes Plan: Will continue antibiotic. (5) Tobacco abuse Is this a current diagnosis for this admission?: Yes Plan: Supportive care. 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 - Time Time Spent with patient: 15-24 minutes
[2017-05-10] MEDS ORDERED: WARFARIN SODIUM 5 MG TABLET PO SCH (15:08)
[2017-05-10] MEDS: BENZONATATE 100 MG CAPSULE PO SCH ×2 (18:14→21:45)
[2017-05-10] MEDS ORDERED: WARFARIN SODIUM 7.5 MG TABLET PO SCH (22:00)
[2017-05-11] MEDS: IPRATROPIUM/ALBUTEROL 0.5-2.5 MG/3 ML AMPUL NEB SCH ×2 (02:15→08:52)
[2017-05-11] MEDS: LANSOPRAZOLE 15 MG TAB.RAP.DR PO SCH (05:48)
[2017-05-11] MEDS: BENZONATATE 100 MG CAPSULE PO SCH (05:48)
[2017-05-11 06:28] LABS: HEMATOCRIT 41.4 % (37.9-51.0); MEAN CORPUSCULAR HEMOGLOBIN 29.2 pg (27.0-33.4); MEAN CORPUSCULAR HGB CONC 33.9 g/dL (32.0-36.0); MEAN CORPUSCULAR VOLUME 86 fl (80-97); PLATELET COUNT 258 10^3/uL (150-450); WHITE BLOOD COUNT 17.6 10^3/uL (4.0-10.5)
[2017-05-11 06:35] LABS: INTERNATIONAL RATION (INR) 1.93; PROTHROMBIN TIME 23.1 SEC (11.4-15.4)
[2017-05-11 06:58] LABS: ANION GAP 12 (5-19); BLOOD UREA NITROGEN 24 mg/dL (7-20); CALCIUM 9.6 mg/dL (8.4-10.2); CARBON DIOXIDE 24 mmol/L (22-30); CHLORIDE 102 mmol/L (98-107); GLUCOSE 101 mg/dL (75-110); POTASSIUM 4.3 mmol/L (3.6-5.0); SODIUM 138.2 mmol/L (137-145)
[2017-05-11 07:09] LABS: ABSOLUTE LYMPHOCYTES# (MANUAL) 1.6 10^3/uL (0.5-4.7); ABSOLUTE MONOCYTES # (MANUAL) 1.8 10^3/uL (0.1-1.4); ABSOLUTE NEUTROPHILS# (MANUAL) 14.3 10^3/uL (1.7-8.2); BAND NEUTROPHILS % (MANUAL) 1 % (3-5); BASOPHILS % (MANUAL) 0 % (0-2); EOSINOPHILS % (MANUAL) 0 % (0-6); LYMPHOCYTES % (MANUAL) 9 % (13-45); MONOCYTES % (MANUAL) 10 % (3-13); SEGMENTED NEUTROPHILS % (MAN) 80 % (42-78); TOTAL CELLS COUNTED 100
[2017-05-11 07:11] LABS: OVALOCYTES SLIGHT; PLATELET COMMENT ADEQUATE; POIKILOCYTOSIS SLIGHT
--- NOTE | 2017-05-11 08:44 | PDOC DISCHARGE SUMMARY ---
General - Admit/Disc Date/PCP Admission Date/Primary Care Provider: 05/06/17 09:36 BLANQUITA MAC, Discharge Date: 05/11/17 - Discharge Diagnosis (1) Acute exacerbation of chronic bronchitis Is this a current diagnosis for this admission?: Yes Summary: Continue nebulization treatments and steroids and slowly wean off (2) COPD exacerbation Is this a current diagnosis for this admission?: Yes Summary: Continue p.o. steroids (3) Hypoxia Is this a current diagnosis for this admission?: Yes (4) Pneumonia Is this a current diagnosis for this admission?: Yes Summary: Complete 7 more days of antibiotic (5) Tobacco abuse Is this a current diagnosis for this admission?: Yes Summary: Smoking cessation (6) Hypercoagulable state Is this a current diagnosis for this admission?: Yes Summary: We will continue with warfarin and recheck PT/INR because of the use of Levaquin - Additional Information Resuscitation Status: Full Code Discharge Diet: As Tolerated Discharge Activity: Activity As Tolerated Prescriptions: Lansoprazole [Prevacid 15 mg Odt Tablet] 30 mg PO BID@0600,1700 #30 tab.rap. Levofloxacin [Levaquin 500 mg Tablet] 500 mg PO DAILY #7 tablet Prednisone [Deltasone 20 mg Tablet] 10 mg PO BID #60 tablet Home Medications: Albuterol Sulfate [Albuterol Sulfate 2.5mg/3 mL] 3 ml NEB Q4HP PRN 05/05/17 Albuterol Sulfate [Ventolin HFA MDI 18 GM] 1 puff IH Q4HP PRN 05/05/17 Fluticasone Propionate [Flovent Hfa 110 Mcg Inhalation Aerosol 12 gm] 1 puff IH Q12 05/05/17 Losartan Potassium [Cozaar 25 mg Tablet] 25 mg PO DAILY 05/05/17 Umeclidinium Brm/Vilanterol Tr [Anoro Ellipta 62.5-25 Mcg INH] 1 puff IH Q12 01/12 Warfarin Sodium [Coumadin 5 mg Tablet] 5 mg PO DAILY 05/05/17 Lansoprazole [Prevacid 15 mg Odt Tablet] 30 mg PO BID@0600,1700 #30 tab.rap 05/11/17 Levofloxacin [Levaquin 500 mg Tablet] 500 mg PO DAILY #7 tablet 05/11/17 Prednisone [Deltasone 20 mg Tablet] 10 mg PO BID #60 tablet 05/11/17 History of Present Illness History of Present Illness: ANUJA NANCE is a 66 year old male Hospital Course Hospital Course: The patient was admitted with an acute exacerbation of COPD. The possibility of bronchitis versus pneumonia has been undertaken. He was started on IV and p.o. steroids and antibiotics. He did quite well over the next several days with significant improvement in his symptomatology Physical Exam Vital Signs: Temp Pulse Resp BP Pulse Ox 98.0 F 83 18 111/68 95 05/11/17 03:42 05/11/17 07:00 05/11/17 03:42 05/11/17 03:42 05/11/17 03:42 Intake & Output 05/10/17 05/11/17 05/12/17 06:59 06:59 06:59 Intake Total 2164 2421 Output Total 800 Balance 1364 2421 Weight 65.7 kg 66 kg General appearance: PRESENT: no acute distress Head exam: PRESENT: atraumatic Eye exam: PRESENT: conjunctiva pink Neck exam: ABSENT: carotid bruit Respiratory exam: PRESENT: rhonchi. ABSENT: wheezes Cardiovascular exam: PRESENT: RRR, +S1, +S2 Pulses: PRESENT: +1 pedal pulses bilateral Vascular exam: PRESENT: normal capillary refill GI/Abdominal exam: PRESENT: normal bowel sounds, soft Extremities exam: PRESENT: full ROM Musculoskeletal exam: PRESENT: ambulatory Neurological exam: PRESENT: alert, awake Results Laboratory Results: 05/11/17 06:09 05/11/17 06:09 05/11/17 05/11/17 06:09 06:09 WBC 17.6 H RBC 4.80 Hgb 14.0 Hct 41.4 MCV 86 MCH 29.2 MCHC 33.9 RDW 14.0 Plt Count 258 Seg Neutrophils % Not Reportable Lymphocytes % Not Reportable Monocytes % Not Reportable Eosinophils % Not Reportable Basophils % Not Reportable Absolute Neutrophils Not Reportable Absolute Lymphocytes Not Reportable Absolute Monocytes Not Reportable Absolute Eosinophils Not Reportable Absolute Basophils Not Reportable Sodium 138.2 Potassium 4.3 Chloride 102 Carbon Dioxide 24 Anion Gap 12 BUN 24 H Creatinine 0.76 Est GFR ( Amer) > 60 Est GFR (Non-Af Amer) > 60 Glucose 101 Calcium 9.6 Impressions: Chest X-Ray 05/06/17 00:00 IMPRESSION: Stable chest. Chronic changes without acute cardiopulmonary disease.
[2017-05-11 08:55] VITALS: BP 117/65
[2017-05-11] MEDS ORDERED: PREDNISONE 20 MG TABLET PO SCH (10:00)
[2017-05-11] MEDS ORDERED: GUAIFENESIN 600 MG TABLET.SA PO SCH (10:00)
[2017-05-11] MEDS ORDERED: LANSOPRAZOLE 15 MG TAB.RAP.DR PO SCH (17:00)
== END 2017-05-11 10:10 | disposition home or self-care (01) | DRG 190 ==
LOC: ER 04:09 → INTOOBSV 06:18 → EH 06:18 → 3S 05-06 07:39 → OBSVTOIN 05-06 09:36 → 3S 05-06 16:30
PROVIDERS: ADMIT Internal Medicine; ATTEND Internal Medicine
PROC: 5A09357 Assistance with Respiratory Ventilation, Less than 24 Consecutive Hours, Continuous Positive Airway Pressure (ICD-10-PCS; principal; 2017-05-06)
DX: J44.0 Chronic obstructive pulmonary disease with (acute) lower respiratory infection (principal); J15.3 Pneumonia due to streptococcus, group B; D68.59 Other primary thrombophilia; J44.1 Chronic obstructive pulmonary disease with (acute) exacerbation; J20.9 Acute bronchitis, unspecified; R09.02 Hypoxemia; E78.5 Hyperlipidemia, unspecified; I10 Essential (primary) hypertension; M19.90 Unspecified osteoarthritis, unspecified site; Z79.01 Long term (current) use of anticoagulants; Z79.899 Other long term (current) drug therapy; F17.200 Nicotine dependence, unspecified, uncomplicated
CPT/HCPCS: 36415; 36600; 71045; 71046; 80048; 80053; 81001; 82803; 82962; 83605; 83735; 84484; 85025; 85610; 87040; 87070; 87086; 87205; 87804; 93005; 93010; 94640; 94660; 94799; 96365; 96375; 99285; G0378; J0692; J2060; J2930; J3475; J3490; J7512; J7620

== ENCOUNTER → 2017-06-29 | Outpatient (CLI) | payer MEDICARE, OTHER ==
--- NOTE | 2017-06-29 14:30 | RADIOLOGY REPORT (SQ) ---
EXAM DESCRIPTION: CHEST PA/LAT COMPLETED DATE/TIME: 06/29/2017 2:18 pm REASON FOR STUDY: DYSPNEA AND RESPIRATORY ABNORMALITY COMPARISON: 05/06/2017. EXAM PARAMETERS: NUMBER OF VIEWS: two views TECHNIQUE: Digital Frontal and Lateral radiographic views of the chest acquired. RADIATION DOSE: NA LIMITATIONS: none FINDINGS: LUNGS AND PLEURA: No opacities, masses or pneumothorax. No pleural effusion. MEDIASTINUM AND HILAR STRUCTURES: No masses or contour abnormalities. HEART AND VASCULAR STRUCTURES: Heart normal size. No evidence for failure. BONES: No acute findings. HARDWARE: None in the chest. OTHER: No other significant finding. IMPRESSION: NO SIGNIFICANT RADIOGRAPHIC FINDING IN THE CHEST. TECHNICAL DOCUMENTATION: JOB ID: [id number] [employer]- All Rights Reserved Reading location - IP/workstation name: [email or web address]
--- NOTE | 2017-06-29 15:12 | RADIOLOGY REPORT (SQ) ---
EXAM DESCRIPTION: NM LUNG VENT/PERF SCAN COMPLETED DATE/TIME: 06/29/2017 3:02 pm REASON FOR STUDY: DYSPNEA AND RESPIRATORY ABNORMALITY R06.00 DYSPNEA, UNSPECIFIED COMPARISON: Chest x-ray dated 06/29/2017. RADIONUCLIDE AND DOSE: 5.4 millicuries TC-99m MAA Intravenous 31.5 millicuries TC-99m DTPA Inhaled aerosol TECHNIQUE: Eight views of the lungs acquired post ventilation of DTPA aerosol. Eight matching views of the lungs acquired following injection of MAA. LIMITATIONS: None. FINDINGS: VENTILATION: Heterogenous distribution of DTPA aerosol during ventilatory phase. A few sm all subsegmental ventilation defects. PERFUSION: Perfusion images with heterogenous activity and a few small subsegmental perfusion defects with matching ventilation abnormalities. No wedge-shaped or segmental defects. No ventilation-perf usion mismatches. OTHER: No other significant finding. IMPRESSION: A FEW SMALL MATCHED SUBSEGMENTAL VENTILATION-PERFUSION DEFECTS. LOW PROBABILITY OF PULM ONARY EMBOLISM. TECHNICAL DOCUMENTATION: JOB ID: [id number] [employer]- All Rights Reserved Reading location - IP/workstation name: [email or web address]
== END ==
LOC: RAD 14:04
PROVIDERS: ATTEND Internal Medicine Pulmonary Disease
DX: R06.00 Dyspnea, unspecified (principal); D68.59 Other primary thrombophilia; M32.9 Systemic lupus erythematosus, unspecified; J44.9 Chronic obstructive pulmonary disease, unspecified; K21.9 Gastro-esophageal reflux disease without esophagitis
CPT/HCPCS: 71046; 78582; A9540; A9567; Q9969

== ENCOUNTER → 2017-07-09 | Outpatient (CLI) | payer MEDICARE, OTHER ==
--- NOTE | 2017-07-09 11:17 | RADIOLOGY REPORT (SQ) ---
EXAM DESCRIPTION: COOKIE SWALLOW COMPLETED DATE/TIME: 07/09/2017 8:54 am REASON FOR STUDY: CHRONIC GERD (K21.9) K21.9 GASTRO-ESOPHAGEAL REFLUX DISEASE WITHOUT ESOPHAGITIS COMPARISON: None. TECHNIQUE: Videofluoroscopic swallowing examination was performed in conjunction with speech patholo gy. Videofluoroscopic imaging was obtained and reviewed and these are the findings: RADIATION DOSE: 1 minutes 40 seconds of fluoroscopy was used. 1 images saved to PACS. LIMITATIONS: None FINDINGS: The patient was brought into the fluoro room and placed upright on a modified barium swall ow chair. The patient was then given multiple consistencies mixed with barium to swallow under live fluoroscopic video guidance. According to the Speech Pathologist there was no penetration or aspirat ion. Cricopharyngeal hypertrophy. IMPRESSION: NO EVIDENCE OF PENETRATION OR ASPIRATION.PLEASE SEE SPEECH PATHOLOGIST REPORT FOR OTHER FINDINGS AND RECOMMENDATIONS. COMMENT: Quality ID [id number]: Final reports for procedures using fluoroscopy that document radiation exp osure indices, or exposure time and number of fluorographic images (if radiation exposure indices are not available) TECHNICAL DOCUMENTATION: JOB ID: [id number] [employer]- All Rights Reserved Reading location - IP/workstation name: [facility]
--- NOTE | 2017-07-09 11:31 | ST Modified Barium Swallow ---
Recommendation - Recommendations Recommendations: No diet changes indicated. Patient may benefit from further gastrointestinal evaluation due to nature of symptoms. Medical Diagnoses - Medical Diagnoses Medical Diagnosis Description & ICD-10 Code(s): chronic GERD K21.9, dysphagia R13.10 Other Medical Diagnoses/Co-Morbidities: Patient reports right side chochlear implant 5 years ago, not active. COPD ST Modified Barium Swallow - General Date: 07/09/17 Referring Physician: Dr. Pierce Risks/Precautions: None Reason for Referral: globus sensation - History History obtained from: Patient -: Medical - Patient reports globus sensation and frequent throat clearing. Patient reports that he does not have reflux, however, physician's paperwork states "chronic GERD". Medications: per patient report: warfatin, potassium, prednisone, flovent (not a complete list) Allergies: none reported - Functional Status Prior Functional Status: INDEPENDENT: feeding - independent Current Functional Limitations: feeding - Subjective Patient/caregiver goal(s): r/o struct. abnormality Cognitive-Linguistic Function: WNL Speech Intelligibility: WNL Current Nutritional Means: PO Current PO diet: Regular Current symptoms: c/o Globus sensation Pain: Patient reports, 0/5 - Objective Assessment: Upright, Left Lateral - Food Trials Used Food trials used: Thin liquids, Pureed, Regular The patient: Was Able to Self Feed - Oral-Motor Skills Dentition: Dentures-Upper, Dentures-Lower - Assessment Oral prep: Normal Labial closure: Adequate Leakage: None Mastication: Adequate Lingual Movement: Normal Oral stage: Normal for this Procedure - Pharyngeal Stage Initiation of Pharyngeal Stage Reflex: Normal Decreased laryngeal elevation: No Reduced Velopharyngeal Closure: no Reduced pressure generation: No reduced tongue-based retraction: No Pre-swallow pooling in valleculae: None Pre-Swallow pooling in pyriforms: None Reduced Thyro-Hyoid approximation: No Reduced epiglottic excursion: No Reduced pharyngeal peristalsis/contraction: No Post-swallow residulas vallecular: None Post-Swallow residuals in pyriforms: Mild - Esophageal Stage Cervical Osteophytes noted: Yes - C5-6 Esophageal Stage: Possible signs of reduced upper esophageal movement. - Fall Risk Assessment Medications/Conditions that increase fall risks include: Antidepressants, sedatives, anti-arrhythmic, diuretic, benzodiazipenes, neuroleptics. BP regulation problems, cardiac problems, balance or gait deficits, neurological problems. Is patient considered at risk for falls: no Fall Risk Actions Taken: No action needed - Behavioral Observations During evaluation process patient: was pleasant, was cooperative, able to answer questions - Treatment / Educational Needs: Treatment/Education Needs: Treatment consisted of patient education on the role of the Speech Pathologist. Patient's plan of care and golas were communicated as well as scheduling and attendance policies. Recommendations for initial home program were shared. Patient demonstrated understanding and verbalized agreement. - Impression/Summary Laryngeal Penetration: No Tracheal Aspiration: no Risk of Aspiration: Minimal Evaluation and Findings: Patient presents with normal oral and pharyngeal phase swallowing. Some signs of possible esophageal phase deficits, may benefit from further GI evaluation. - Recommendations Solid diet recommendations: Regular Liquid Diet Modification: Thin Pt/Family education and followup with MD: Yes Dysphagia therapy with HRIS ANALYST: no Reflux Precautions: Taught to Patient Recommended techniques: Fully Upright During Meal, Small Bites and Sips, Alternate Bites/Sips - Plan of Care Patient to follow-up with referring physician: Yes Total timed minutes: 20 Strategies to optimize patient understanding include:: ongoing assessment of educational needs, implementation of educational strategies, and re-education. - - -: Thank you for the opportunity to work with this patient and his/her family. Should you have any questions about this patient's plan or progress, I can be reached at [phone]. Charge G Code? - - -: Yes ST F.L. Impairment Category - Rationale Based On Rationale Based On: Func. Asses. Tool Results - Swallowing Current G8996: CH 0% Impaired Goal G8997: CH 0% Impaired Discharge G8998: CH 0% Impaired
== END ==
LOC: RAD 07:34
PROVIDERS: ATTEND Internal Medicine Pulmonary Disease
DX: K21.9 Gastro-esophageal reflux disease without esophagitis (principal); R05 Cough
CPT/HCPCS: 74230; 92611; G8996; G8997; G8998

== ENCOUNTER → 2017-09-18 | Outpatient (CLI) | payer MEDICARE, OTHER ==
[2017-09-18 11:33] LABS: INTERNATIONAL RATION (INR) 1.61; PROTHROMBIN TIME 19.9 SEC (11.4-15.4)
--- NOTE | 2017-09-18 11:40 | RADIOLOGY REPORT (SQ) ---
EXAM DESCRIPTION: VENOUS UNILATERAL LOWER COMPLETED DATE/TIME: 09/18/2017 11:24 am REASON FOR STUDY: LLE SWELLING R22.42 LOCALIZED SWELLING, MASS AND LUMP, LEFT LOWER LIMB I82.409 A CUTE EMBOLISM AND THOMBOS UNSP DEEP VN UNSP LOWER E COMPARISON: VENOUS DOPPLER 12/08/2015 TECHNIQUE: Dynamic and static govea scale and color images acquired of the left leg venous system. Se lected spectral images acquired with additional compression and augmentation maneuvers. The contralat eral common femoral vein and saphenofemoral junction were also imaged. Images stored on PACS. LIMITATIONS: None. FINDINGS: LEFT COMMON FEMORAL: Normal phasicity, compression and augmentation. No visualized echogenic material on g ray scale. No defects on color images. FEMORAL: Normal compression and augmentation. No visualized echogenic material on govea scale. No defe cts on color images. POPLITEAL: Normal compression, augmentation. No visualized echogenic material on govea scale. No defec ts on color images. CALF VESSELS: Normal compression, augmentation. No visualized echogenic material on govea scale. No de fects on color images. GSV in the thigh: Normal compression, augmentation. No visualized echogenic material on govea scale. N o defects on color images. GSV in the calf: Greater saphenous vein in the calf is incompletely occluded by acute hypoechoic debbie t. SSV in the calf: Lesser saphenous vein in the calf is occluded by acute hypoechoic clot. ANY DEEP VENOUS INSUFFICIENCY: No reflux. ANY EVIDENCE OF POPLITEAL CYST: No. OTHER: There are thrombosed superficial varicosities in the left medial calf which are filled with ac joy hypoechoic clot. RIGHT COMMON FEMORAL VEIN AND SAPHENOFEMORAL JUNCTION: Normal phasicity, compression and augmentation. No visualized echogenic material on govea scale. No de fects on color images. IMPRESSION: Acute hypoechoic clot in the greater and lesser saphenous veins in the left calf, with a cute hypoechoic clot in thrombosed superficial varicosities medial left calf. No left lower extremity deep venous thrombosis. TECHNICAL DOCUMENTATION: JOB ID: [id number] [employer]- All Rights Reserved Reading location - IP/workstation name: [email or web address]
== END ==
LOC: SP 09:58
PROVIDERS: ATTEND Family Medicine
DX: I82.4Z2 Acute embolism and thrombosis of unspecified deep veins of left distal lower extremity (principal); R22.42 Localized swelling, mass and lump, left lower limb
CPT/HCPCS: 36415; 85610; 93971

== ENCOUNTER 2017-10-06 10:19 | Outpatient (CLI) | payer MEDICARE, OTHER ==
[2017-10-06 11:03] VITALS: BP 140/84
== END 2017-10-06 15:28 | disposition home or self-care (01) ==
LOC: II 10:19 → 5TH 10:21 → II 15:28
PROVIDERS: ATTEND Internal Medicine
PROC: 3E0330M Introduction of Antineoplastic, Monoclonal Antibody, into Peripheral Vein, Percutaneous Approach (ICD-10-PCS; principal; 2017-10-06)
PROC: 3E033GC Introduction of Other Therapeutic Substance into Peripheral Vein, Percutaneous Approach (ICD-10-PCS; 2017-10-06)
DX: M06.9 Rheumatoid arthritis, unspecified (principal)
CPT/HCPCS: 96413; 96415; 96375; A9270; J1200; J7040; J9310

== ENCOUNTER 2017-10-20 07:57 | Outpatient (CLI) | payer MEDICARE, OTHER ==
[2017-10-20 08:58] VITALS: BP 120/74
[2017-10-20 10:48] LABS: ALANINE AMINOTRANSFERASE 29 U/L (21-72); ALBUMIN 4.1 g/dL (3.5-5.0); ALKALINE PHOSPHATASE 60 U/L (38-126); ANION GAP 11 (5-19); ASPARTATE AMINO TRANSFERASE 22 U/L (17-59); BILIRUBIN,DIRECT 0.4 mg/dL (0.0-0.4); BILIRUBIN,TOTAL 0.7 mg/dL (0.2-1.3); BLOOD UREA NITROGEN 18 mg/dL (7-20); CALCIUM 9.5 mg/dL (8.4-10.2); CARBON DIOXIDE 23 mmol/L (22-30); CHLORIDE 109 mmol/L (98-107); GLUCOSE 105 mg/dL (75-110); POTASSIUM 3.6 mmol/L (3.6-5.0); TOTAL PROTEIN 6.4 g/dL (6.3-8.2)
== END 2017-10-20 13:00 | disposition home or self-care (01) ==
LOC: II 07:57 → 5TH 07:59 → II 13:00
PROVIDERS: ATTEND Internal Medicine
PROC: 3E0330M Introduction of Antineoplastic, Monoclonal Antibody, into Peripheral Vein, Percutaneous Approach (ICD-10-PCS; principal; 2017-10-20)
DX: M06.9 Rheumatoid arthritis, unspecified (principal)
CPT/HCPCS: 36415; 80053; 96365; 96366; 96374; A9270; J1200; J7040; J9310; 96375; 96413; 96415

== ENCOUNTER 2018-01-03 06:54 | Emergency (ER) | payer MEDICARE, OTHER ==
[2018-01-03] MEDS ORDERED: NORMAL SALINE 1000 ML 1,000 ML IV ONE (07:29)
[2018-01-03] MEDS ORDERED: KETOROLAC TROMETHAMINE INJ/PF 30 MG/1 ML SDV IV ONE (07:30)
--- NOTE | 2018-01-03 08:02 | ER Document Report ---
ED General - General Chief Complaint: Difficulty Swallowing Stated Complaint: NECK PAIN Time Seen by Provider: 01/03/18 07:15 TRAVEL OUTSIDE OF THE [place] IN LAST 30 DAYS: No - HPI Notes: Patient is a 67-year-old male that presents to the emergency department for chief complaint of neck and throat pain. Patient presents to the emergency room by private vehicle for neck pain, headache and throat pain. He states 3 days ago he started having a sharp pain on the right side of his neck. Pain was worse with movement and relieved when he was holding still. The pain did not radiate and was described as sharp in nature. That pain has continued to get worse and yesterday spread to the left side of his neck. Patient also states that he started feeling like his throat was swollen and sore last night. Pain is sharp and bilateral. He states this morning he took a Benadryl which helped with the swollen feeling in his throat. He has no known allergies or history of anaphylaxis. He denies any difficulty breathing or swallowing. Patient states this morning he woke up and had an achy headache. He states this pain starts in the back of his head bilaterally and spreads to his forehead. The headache has been gradual in onset. He has not taken any gakn-ied-zwyildj medications for pain or fever. His daughter states that he has had similar symptoms in the past which was from an infection but she does not know any more details. Past Medical History: COPD, lupus, protein C&S deficiency Past Surgical History: Back surgery, right mastoid surgery Social History: Former smoker, denies drugs and alcohol Family History: Reviewed and noncontributory for presenting illness Allergies: Reviewed, see documented allergy list. REVIEW OF SYSTEMS: CONSTITUTIONAL : No fever No chills No diaphoresis No recent illness EENT: No vision changes No congestion sore throat CARDIOVASCULAR: No chest pain No palpitations No shortness of breath RESPIRATORY: No shortness of breath No cough No difficulty breathing GASTROINTESTINAL: No abdominal pain No nausea No vomiting No diarrhea GENITOURINARY: No dysuria No hematuria No difficulty urinating MUSCULOSKELETAL: Neck pain No back pain No leg pain No arm pain SKIN: No rashes No lesions LYMPHATIC: No swollen, enlarged glands. NEUROLOGICAL: No lightheadedness headache No weakness No paresthesias PSYCHIATRIC: No anxiety No depression PHYSICAL EXAMINATION: Vital signs reviewed, nursing noted reviewed. GENERAL: Well-appearing, well-nourished and in no acute distress. HEAD: Atraumatic, normocephalic. EYES: Eyes appear normal, extraocular movements intact, sclera anicteric, conjunctiva are normal. ENT: nares patent. Moist mucous membranes. Neural tonsillar edema with white exudates and erythema. Mild uvular edema. NECK: Decreased range of motion in all directions, anterior chain lymphadenopathy. Tenderness to palpation of bilateral paraspinal musculature with spasm. No midline spinal tenderness or step-off. No crepitus. Trachea midline. Anterior cervical supply chain associate proximally bilaterally. LUNGS: Breath sounds clear to auscultation bilaterally and equal. No wheezes rales or rhonchi. HEART: Regular rate and rhythm without murmurs ABDOMEN: Soft, nontender, normoactive bowel sounds. No rebound, guarding, or rigidity. No masses appreciated. EXTREMITIES: Nontender, good range of motion, no pitting or edema. NEUROLOGICAL: No focal neurological deficits. Moves all extremities spontaneously Motor and sensory grossly intact on exam. PSYCH: Normal mood, normal affect. SKIN: Warm, Dry, normal turgor, no rashes or lesions noted on exposed skin - Related Data Allergies/Adverse Reactions: No Known Allergies Allergy (Verified 04/07/16 14:21) Past Medical History - Social History Smoking Status: Former Smoker Family History: COPD - Past Medical History Cardiac Medical History: Reports: Hx Hypercholesterolemia, Hx Hypertension Denies: Hx Heart Attack Pulmonary Medical History: Reports: Hx Asthma, Hx COPD - uses two at home nebulizer treatments every day Denies: Hx Tuberculosis Neurological Medical History: Denies: Hx Cerebrovascular Accident, Hx Seizures Renal/ Medical History: Denies: Hx Peritoneal Dialysis GI Medical History: Denies: Hx Hepatitis, Hx Hiatal Hernia, Hx Ulcer Musculoskeletal Medical History: Reports Hx Arthritis Psychiatric Medical History: Denies: Hx Depression Infectious Medical History: Denies: Hx Hepatitis Past Surgical History: Reports: Hx Adenoidectomy, Hx Appendectomy, Hx Orthopedic Surgery, Hx Tonsillectomy, Hx Vascular Surgery - "vein stripping d/t blood clots" back surgery; cochlear implants. Denies: Hx Open Heart Surgery, Hx Pacemaker - Immunizations Hx Diphtheria, Pertussis, Tetanus Vaccination: Yes Hx Pneumococcal Vaccination: 02/08/11 Review of Systems - Review of Systems Notes: Dictated Physical Exam - Vital signs Vitals: Temp Pulse Resp BP Pulse Ox 98.5 F 96 20 156/86 H 97 01/03/18 07:02 01/03/18 07:02 01/03/18 07:02 01/03/18 07:02 01/03/18 07:02 - Notes Notes: Dictated Course - Re-evaluation Re-evalutation: 01/03/18 08:05 Vitals reviewed and stable. Patient is afebrile and nontoxic appearing. He was given Toradol for pain. 01/03/18 15:37 On reevaluation patient's pain was still severe. He was given multiple doses of morphine for pain control. CT brain shows no intracranial hemorrhage or other acute process. CT scan of the soft tissue shows no retropharyngeal abscess or peritonsillar abscess. Patient has no acute findings on imaging. His lab work shows a mild leukocytosis of 12.3. He has a normal lactic acid. Patient is not meeting any sepsis criteria. My suspicion for meningitis is low given that he is afebrile with a very mild elevation in WBC count and this is been ongoing for the past 3 days. Because he is anticoagulated on Xarelto the risk of lumbar puncture outweigh the benefits at this time. He will be prophylactically treated with Rocephin and vancomycin. I discussed patient's care with our hospitalist service for observation and possible lumbar puncture by IR tomorrow if his clinical picture is worsening. Dr. Michaels is concerned that patient's symptoms may be related to his lupus and lupus exacerbation, he is refusing admission because we do not have rheumatology available for consultation. I discussed [facility] but they also do not have rheumatology available. Patient's cyber instructor Dr. Biggs is at [facility] which is where he usually gets his care. Patient is requesting to be transferred to that facility for further management. I discussed his care with Dr. Delarosa who has accepted the transfer. patient has remained hemodynamically stable. His pain is improving. Patient and family are in agreement with the plan. Transfer to [facility] accepting physician Dr. Delarosa. Laboratory 01/03/18 01/03/18 01/03/18 08:43 09:15 09:15 WBC 12.3 H RBC 4.80 Hgb 13.7 Hct 41.4 MCV 86 MCH 28.6 MCHC 33.2 RDW 14.3 H Plt Count 278 Seg Neutrophils % 77.2 Lymphocytes % 8.1 L Monocytes % 12.7 Eosinophils % 1.2 Basophils % 0.8 Absolute Neutrophils 9.5 H Absolute Lymphocytes 1.0 Absolute Monocytes 1.6 H Absolute Eosinophils 0.1 Absolute Basophils 0.1 Sodium 141.5 Potassium 3.6 Chloride 109 H Carbon Dioxide 23 Anion Gap 10 BUN 10 Creatinine 0.64 Est GFR ( Amer) > 60 Est GFR (Non-Af Amer) > 60 Glucose 101 Lactic Acid Calcium 9.3 Monotest Group A Strep Rapid NEGATIVE 01/03/18 01/03/18 09:15 09:15 WBC RBC Hgb Hct MCV MCH MCHC RDW Plt Count Seg Neutrophils % Lymphocytes % Monocytes % Eosinophils % Basophils % Absolute Neutrophils Absolute Lymphocytes Absolute Monocytes Absolute Eosinophils Absolute Basophils Sodium Potassium Chloride Carbon Dioxide Anion Gap BUN Creatinine Est GFR ( Amer) Est GFR (Non-Af Amer) Glucose Lactic Acid 0.9 Calcium Monotest NEGATIVE Group A Strep Rapid Head CT 01/03/18 07:28 IMPRESSION: MILD CHRONIC CHANGES OF ATROPHY AND MICROVASCULAR ISCHEMIA. NO ACUTE PROCESS. EVIDENCE OF ACUTE STROKE: NO. Soft Tissue Neck CT 01/03/18 07:28 IMPRESSION: NO SIGNIFICANT FINDING IN THE SOFT TISSUES OF THE NECK. - Vital Signs Vital signs: Temp Pulse Resp BP Pulse Ox 98.1 F 96 19 164/98 H 97 01/03/18 08:00 01/03/18 07:02 01/03/18 08:01 01/03/18 08:00 01/03/18 08:01 - Laboratory Result Diagrams: 01/03/18 09:15 01/03/18 09:15 Laboratory results interpreted by me: 01/03/18 01/03/18 09:15 09:15 WBC 12.3 H RDW 14.3 H Lymphocytes % 8.1 L Absolute Neutrophils 9.5 H Absolute Monocytes 1.6 H Chloride 109 H Discharge - Discharge Clinical Impression: Neck pain, Leukocytosis Headache Qualifiers: Headache type: unspecified Headache chronicity pattern: acute headache Intractability: not intractable Qualified Code(s): R51 - Headache Condition: Stable Disposition: OTHER
[2018-01-03] MEDS ORDERED: MORPHINE SULFATE 10 MG/ML INJ IV ONE ×3 (09:19→19:57)
[2018-01-03 09:49] LABS: ABSOLUTE BASOPHILS # (AUTO) 0.1 10^3/uL (0.0-0.2); ABSOLUTE EOSINOPHILS # (AUTO) 0.1 10^3/uL (0.0-0.6); ABSOLUTE MONOCYTES (AUTO) 1.6 10^3/uL (0.1-1.4); ABSOLUTE NEUT (AUTO) 9.5 10^3/uL (1.7-8.2); BASOPHILS % (AUTO) 0.8 % (0-2); EOSINOPHILS % (AUTO) 1.2 % (0-6); HEMATOCRIT 41.4 % (37.9-51.0); HEMOGLOBIN 13.7 g/dL (13.5-17.0); LYMPHOCYTES % (AUTO) 8.1 % (13-45); MEAN CORPUSCULAR HEMOGLOBIN 28.6 pg (27.0-33.4); MEAN CORPUSCULAR HGB CONC 33.2 g/dL (32.0-36.0); MEAN CORPUSCULAR VOLUME 86 fl (80-97); MONOCYTES % (AUTO) 12.7 % (3-13); PLATELET COUNT 278 10^3/uL (150-450); RED CELL DISTRIBUTION WIDTH 14.3 % (11.5-14.0); SEGMENTED NEUTROPHILS % (AUTO) 77.2 % (42-78); TOTAL CELLS COUNTED % (AUTO) 100 %; WHITE BLOOD COUNT 12.3 10^3/uL (4.0-10.5)
[2018-01-03 10:07] LABS: ANION GAP 10 (5-19); BLOOD UREA NITROGEN 10 mg/dL (7-20); CALCIUM 9.3 mg/dL (8.4-10.2); CARBON DIOXIDE 23 mmol/L (22-30); CHLORIDE 109 mmol/L (98-107); GLUCOSE 101 mg/dL (75-110); POTASSIUM 3.6 mmol/L (3.6-5.0); SODIUM 141.5 mmol/L (137-145)
[2018-01-03] MEDS ORDERED: CYCLOBENZAPRINE HCL 10 MG TABLET PO ONE (10:33)
--- NOTE | 2018-01-03 11:10 | RADIOLOGY REPORT (SQ) ---
EXAM DESCRIPTION: CT HEAD WITHOUT COMPLETED DATE/TIME: 01/03/2018 10:51 am REASON FOR STUDY: headache COMPARISON: None. TECHNIQUE: Axial images acquired through the brain without intravenous contrast. Images reviewed wi th bone, brain and subdural windows. Additional sagittal and coronal reconstructions were generated. Images stored on PACS. All CT scanners at this facility use dose modulation, iterative reconstruction, and/or weight based d osing when appropriate to reduce radiation dose to as low as reasonably achievable (ALARA). [facility]: Dose Right [facility]: CareDose [facility]: Dose Right [facility]: Teradose 4D [facility]: Writer.ly RADIATION DOSE: CT Rad equipment meets quality standard of care and radiation dose reduction techniq ues were employed. CTDIvol: 53.2 mGy. DLP: 1044 mGy-cm. mGy. LIMITATIONS: None. FINDINGS: VENTRICLES: Prominent. CEREBRUM: No masses. No hemorrhage. No midline shift. Areas of low density in the white matter mos t likely due to chronic micro-vascular ischemic change. No evidence for acute infarction. CEREBELLUM: No masses. No hemorrhage. No alteration of density. No evidence for acute infarction. EXTRAAXIAL SPACES: Mild age-related involutional change. No fluid collections. No masses. ORBITS AND GLOBE: No intra- or extraconal masses. Normal contour of globe without masses. CALVARIUM: Jay screw or projectile in the right parietal calvarium. PARANASAL SINUSES: No fluid or mucosal thickening. SOFT TISSUES: No hematoma. OTHER: No other significant finding. IMPRESSION: MILD CHRONIC CHANGES OF ATROPHY AND MICROVASCULAR ISCHEMIA. NO ACUTE PROCESS. EVIDENCE OF ACUTE STROKE: NO. TECHNICAL DOCUMENTATION: JOB ID: [id number] Quality ID # [id number]: Final reports with documentation of one or more dose reduction techniques (e.g., Au tomated exposure control, adjustment of the mA and/or kV according to patient size, use of iterative reconstruction technique) 2010 [employer]- All Rights Reserved Reading location - IP/workstation name: [email or web address]
--- NOTE | 2018-01-03 11:18 | RADIOLOGY REPORT (SQ) ---
EXAM DESCRIPTION: CT SOFT TISSUE NECK WITH COMPLETED DATE/TIME: 01/03/2018 10:51 am REASON FOR STUDY: throat pain and swelling COMPARISON: None. TECHNIQUE: Post IV contrasted scanning from skull base through lung apices with review of bone, soft tissue and lung windows. Reconstructed coronal and sagittal MPR images reviewed. All images stored on PACS. All CT scanners at this facility use dose modulation, iterative reconstruction, and/or weight based d osing when appropriate to reduce radiation dose to as low as reasonably achievable (ALARA). [facility]: Dose Right [facility]: CareDose [facility]: Dose Right [facility]: Teradose 4D [facility]: [employer] CONTRAST TYPE AND DOSE: contrast/concentration: Isovue 350.00 mg/ml; Total Contrast Delivered: 74.0 ml; Total Saline Delivered: 53.0 ml RENAL FUNCTION: GFR > 60. RADIATION DOSE: CT Rad equipment meets quality standard of care and radiation dose reduction techniq ues were employed. CTDIvol: 12.6 mGy. DLP: 460 mGy-cm. . LIMITATIONS: None. FINDINGS: SKULL BASE: Intact. MAJOR SALIVARY GLANDS: No solid or cystic masses. No inflammatory changes. LYMPHADENOPATHY: No adenopathy. MUCOSAL MASSES OR ASYMMETRY: No mucosal masses or asymmetry. LARYNX/CORDS: No abnormal findings. VASCULAR STRUCTURES: The major vessels are patent. LUNG APICES: Clear. BONES: Intact. THYROID: Normal size. No masses. PARANASAL SINUSES: Clear. OTHER: No other significant finding. IMPRESSION: NO SIGNIFICANT FINDING IN THE SOFT TISSUES OF THE NECK. TECHNICAL DOCUMENTATION: JOB ID: [id number] Quality ID # [id number]: Final reports with documentation of one or more dose reduction techniques (e.g., Au tomated exposure control, adjustment of the mA and/or kV according to patient size, use of iterative reconstruction technique) 2010 [employer]- All Rights Reserved Reading location - IP/workstation name: [email or web address]
[2018-01-03] MEDS ORDERED: CEFTRIAXONE INJ 1000 MG VIAL IV ONE (11:59)
[2018-01-03] MEDS ORDERED: VANCOMYCIN HCL INJ 1000 MG VIAL IV ONE (11:59)
[2018-01-03 19:57] VITALS: BP 163/89
[2018-01-03] MEDS ORDERED: ONDANSETRON HCL INJ/PF 4 MG/2 ML SDV IV ONE (19:57)
--- NOTE | 2018-01-03 20:00 | ER Document Report ---
Doctor's Note Notes: 01/03/18 19:59 Patient seen and examined prior to transfer. Vital signs reviewed, patient stable, states that he is prepared to be transferred, he did request something for pain prior to transfer, did order 4 mg of morphine and 4 mg of Zofran. Patient is agreeable to transfer still at this time.
[2018-01-05 08:44] LABS: COMPLEMENT C4 35 mg/dL (14-44)
[2018-01-05 10:02] LABS: COMPLEMENT C3 187 mg/dL (82-167)
== END 2018-01-03 20:21 | disposition other institution (70) ==
LOC: ER 06:54 → EH 12:15 → UNDOADMOB 12:15 → UNDODISOB 19:59 → EH 20:20
DX: M54.2 Cervicalgia (principal); R51 Headache; D72.829 Elevated white blood cell count, unspecified; J02.9 Acute pharyngitis, unspecified; J44.9 Chronic obstructive pulmonary disease, unspecified; E78.00 Pure hypercholesterolemia, unspecified; I10 Essential (primary) hypertension; Z79.02 Long term (current) use of antithrombotics/antiplatelets
CPT/HCPCS: 96376; 99285; 96361; 96375; 96365; 36415; 87040; 87070; 87880; 86160 ×2; 85025; 86308; 80048; 83605; 70450; 70491; A9270; J1885; J2270; J0696; J2405; J7030; J3370

== ENCOUNTER 2018-01-26 05:57 | Day surgery (SDC) | payer MEDICARE, OTHER ==
[~2018-01-26 05:57] MED LIST changes: -ACETAMINOPHEN 325 MG TABLET PO PRN; +CEFAZOLIN 2 GM/D5W RTU 2 GM/50 ML RTUPB IV ONE; +CEFAZOLIN 2 GM/D5W RTU 2 GM/50 ML RTUPB IV PRN; -DIPHENHYDRAMINE HCL 50 MG/ML VIAL IV PRN; -NORMAL SALINE 250 ML IV PRN; -RITUXIMAB 1,000 MG in NORMAL SALINE 500 ML IV PRN
[2018-01-26] MEDS ORDERED: LIDOCAINE 2% INJ-PF (20 MG/ML) 10 ML AMPUL ONE (06:20)
[2018-01-26] MEDS ORDERED: FENTANYL CITRATE INJ/PF 100 MCG/2 ML AMPUL ONE (06:21)
[2018-01-26] MEDS ORDERED: ONDANSETRON HCL INJ/PF 4 MG/2 ML SDV ONE (06:21)
[2018-01-26] MEDS ORDERED: DEXAMETHASONE SOD PHOSPHATE INJ 4 MG/1 ML VIAL ONE (06:21)
[2018-01-26] MEDS ORDERED: PROPOFOL INJ 200 MG/20 ML VIAL IV ONE (06:21)
[2018-01-26] MEDS ORDERED: MIDAZOLAM 2 MG/2 ML INJ ONE (06:21)
[2018-01-26] MEDS ORDERED: ACETAMINOPHEN 1,000 MG/100 ML RTUPB IV ONE (06:22)
[2018-01-26 06:39] LABS: HEMATOCRIT 35.5 % (37.9-51.0); HEMOGLOBIN 12.4 g/dL (13.5-17.0); MEAN CORPUSCULAR HEMOGLOBIN 29.9 pg (27.0-33.4); MEAN CORPUSCULAR VOLUME 85 fl (80-97); PLATELET COUNT 229 10^3/uL (150-450); RED BLOOD COUNT 4.16 10^6/uL (4.35-5.55); RED CELL DISTRIBUTION WIDTH 14.2 % (11.5-14.0); WHITE BLOOD COUNT 9.3 10^3/uL (4.0-10.5)
[2018-01-26 06:48] LABS: ANION GAP 10 (5-19); BLOOD UREA NITROGEN 13 mg/dL (7-20); CALCIUM 9.3 mg/dL (8.4-10.2); CARBON DIOXIDE 25 mmol/L (22-30); CHLORIDE 108 mmol/L (98-107); GLUCOSE 88 mg/dL (75-110); POTASSIUM 3.5 mmol/L (3.6-5.0); SODIUM 142.8 mmol/L (137-145)
[2018-01-26] MEDS ORDERED: ALBUTEROL SULFATE 0.083% NEB 2.5 MG/3 ML AMPUL NEB ONE (07:10)
[2018-01-26 07:26] LABS: INTERNATIONAL RATION (INR) 0.95; PROTHROMBIN TIME 13.2 SEC (11.4-15.4)
[2018-01-26 07:27] LABS: PARTIAL THROMBOPLASTIN TIME 31.8 SEC (23.5-35.8)
[2018-01-26] MEDS ORDERED: BUPIVACAINE HCL 0.5 % INJ/PF 30 ML SDV ONE (07:46)
[2018-01-26] MEDS ORDERED: KETAMINE HCL INJ 500 MG/10 ML VIAL ONE (07:50)
[2018-01-26] MEDS ORDERED: LIDOCAINE 2%/EPINEPHRINE INJ 20 ML VIAL ONE (08:07)
[2018-01-26] MEDS ORDERED: LIDOCAINE 1% INJ-PF (10 MG/ML) 30 ML SDV ONE (08:08)
[2018-01-26] MEDS ORDERED: DIPHENHYDRAMINE HCL 50 MG/ML VIAL IV PRN (08:43)
[2018-01-26] MEDS ORDERED: MEPERIDINE HCL/PF INJ 25 MG/1 ML DISP.SYRIN IV PRN (08:43)
[2018-01-26] MEDS ORDERED: PROMETHAZINE HCL INJ 25 MG/1 ML VIAL IV PRN ×2 (08:43)
[2018-01-26] MEDS ORDERED: ONDANSETRON HCL INJ/PF 4 MG/2 ML SDV IV PRN ×2 (08:43→10:14)
[2018-01-26] MEDS ORDERED: FENTANYL CITRATE INJ/PF 100 MCG/2 ML AMPUL IV PRN ×2 (08:43)
[2018-01-26] MEDS ORDERED: MORPHINE SULFATE 10 MG/ML INJ IV PRN ×2 (08:43→10:14)
[2018-01-26] MEDS ORDERED: OXYCODONE-ACETAMINOPHEN 5-325 MG TABLET PO PRN (10:14)
--- NOTE | 2018-01-26 10:15 | Discharge Summary ---
Discharge Summary (SDC) - Discharge Final Diagnosis: Dupuytren's contracture left small finger Date of Surgery: 01/26/18 Discharge Date: 01/26/18 Condition: Good Treatment or Instructions: Schedule Follow Up w/ Dr. Hector Thompson @ [facility] for Surgery to be seen in 10-14 days or as scheduled [place]: [place]: [place]: Ice and elevate Keep splint clean/dry/intact. If your fingers become numb please unwrap the John wrap but leave the splint in place, if the sensation does not return within 30 minutes please return to the emergency department. Please use ibuprofen (Motrin or Advil) 600-800 mg every 8 hours as needed for pain or fever. You may also use acetaminophen (Tylenol) 1000 mg every 4-6 hours as needed for pain or fever. Please be aware that many medications contain acetaminophen, do not exceed a total of 1000 mg of acetaminophen every 6 hours. If ibuprofen and acetaminophen are not sufficient for your pain you may take the Percocet/[place]. Please be aware that the Percocet/[place] does contain Tylenol. Stool softener of choice when on pain medication. Prescriptions: Oxycodone HCl/Acetaminophen [Percocet 5-325 mg Tablet] 1 tab PO Q6 #25 tab Referrals: BLANQUITA MAC MD [Primary Care Provider] - Discharge Diet: As Tolerated Respiratory Treatments at Home: Deep Breathing/Coughing Discharge Activity: No Lifting Over 10 Pounds, No Lifting/Push/Pulling Report the Following to Your Physician Immediately: Fever over 101 Degrees, Unusual Bleeding, Redness, Swelling, Warmth, Increased Soreness
--- NOTE | 2018-01-26 10:24 | Operative Report ---
Operative Report DATE OF SURGERY: 01/26/18 PREOPERATIVE DIAGNOSIS: Left small/ring finger Dupuytren's contracture POSTOPERATIVE DIAGNOSIS: Same OPERATION: Sub-palmar fasciectomy, Dupuytren's release small and ring finger SURGEON: FORD [place] ANESTHESIA: LMAC TISSUE REMOVED OR ALTERED: None COMPLICATIONS: None ESTIMATED BLOOD LOSS: Minimal PROCEDURE: Indication for above procedure: 67-year-old male who presented with Dupuytren's contracture of his left hand. We discussed treatment options including operative and nonoperative management. Given the long-standing history of patient's depressions he would like to proceed with invasive treatment. We also discussed possibility of Xiaflex but after discussing expectations and outcomes patient elected for surgical intervention. Procedure In Detail: Patient was seen and evaluated in the preoperative holding area. The RIGHT upper extremity was initialized and marked. Patient received 2g of Ancef IV for bacterial prophylaxis. Patient was taken back to the operative room where transferred to the operative table. Patient then received a regional block for tourniquet pain. Once they were adequately anesthetized a nonsterile tourniquet was placed on the upper extremity. A surgical team debriefing was performed ensuring all instrumentation was available, the surgical procedure was discussed with possible concerns reviewed. A digital block was performed utilizing 20 mL of 1% lidocaine without epinephrine. The upper extremity was prepped with chlorhexidine and alcohol and draped in a sterile fashion. A timeout was done identifying correct patient, procedure and extremity everyone in attendance agree with this and verbalized no concerns. The extremity was elevated the tourniquet was inflated to 250 mmHg. Longitudinal skin incision was made from the PIP joint to the distal palmar crease. A Catalina's extension was then made in a proximal direction. Blunt dissection was performed and normal tissue proximally identifying the common digital nerve and artery. These were then dissected and followed distally. The ulnar digital nerve entered the abductor digiti minimi cord beginning radially and then turning superficial and central. This was then followed as it entered the cord and then in the normal tissue distal to the cord. The radial digital nerve was then identified in its normal location. Leighton's ligaments were released surrounding the radial and ulnar digital nerves. Once adequate release of the nerves was performed they could be retracted to avoid iatrogenic injury. The central cord extending into the ring finger and small finger was isolated from the overlying skin and deep flexor tendon. Once again the neurovascular bundles were identified and protected the central cord causing a mild contracture of the ring MP joint and a portion of the contracture of the small MP joint was excised. Once excised patient had full passive motion of the ring finger. I then proceeded with excision of the remaining central cord to the small finger and abductor digiti minimi cord. The cord was released the proximal portion was excised while my special education teaching assistant protected the radial and ulnar neurovascular bundles. A portion of the cord was not removed at the PIP joint given its location to the radial and ulnar digital nerves. Once the cord was excised and released patient had full passive MP joint extension of the ring and small finger. Full PIP joint passive range of motion. The wound was then copiously irrigated with normal saline. Tourniquet was deflated. Compression was held for 2 minutes. Any remaining peripheral bleeding was controlled with bipolar cautery until the wound was dry. A total of two 60 degree Z-plasties were then constructed at the proximal phalanx and just distal to the distal palmar crease to allow skin closure. Once transposed patient had full passive extension without evidence of skin compromise. Incision was closed distally with 4-0 nylon suture and proximally with 3-0 nylon suture. Patient had normal peripheral perfusion with normal capillary refill and skin turgor. Wound was dressed Xeroform 4 x 4's and placed in a fiberglass volar splint maintaining full MP joint extension. Sponge counts, instrument counts, needle counts counts were correct. Patient was then awoken from anesthesia. Transferred from the operating room table to the operating room stretcher. There was no intraoperative complications patient tolerated procedure well stable to PACU. Postoperative plan: Patient will follow-up as scheduled for wound check. Patient will begin occupational therapy 7 days postoperatively.
[2018-01-26 12:15] VITALS: BP 142/79
== END 2018-01-26 11:40 | disposition home or self-care (01) ==
LOC: OROUT 05:57
PROVIDERS: ATTEND Orthopaedic Surgery
DX: M72.0 Palmar fascial fibromatosis [Dupuytren] (principal); M48.00 Spinal stenosis, site unspecified; J44.9 Chronic obstructive pulmonary disease, unspecified; I10 Essential (primary) hypertension; M19.90 Unspecified osteoarthritis, unspecified site; M06.9 Rheumatoid arthritis, unspecified; Z79.51 Long term (current) use of inhaled steroids; Z79.01 Long term (current) use of anticoagulants; Z99.81 Dependence on supplemental oxygen; Z01.818 Encounter for other preprocedural examination; Z87.891 Personal history of nicotine dependence; Z01.810 Encounter for preprocedural cardiovascular examination; Z01.812 Encounter for preprocedural laboratory examination
CPT/HCPCS: 36415; 85027; 85610; 85730; 80048; 26123; 26125; J2250; J3490 ×4; J1100; J3010; J2405; J2704; J0690; J0131; 1810

== ENCOUNTER → 2018-04-29 | Outpatient (CLI) | payer MEDICARE, OTHER ==
--- NOTE | 2018-04-29 11:38 | RADIOLOGY REPORT (SQ) ---
EXAM DESCRIPTION: CHEST PA/LATERAL COMPLETED DATE/TIME: 04/29/2018 11:19 am REASON FOR STUDY: PRODUCTIVE COUGH COMPARISON: Chest CT 03/26/2017 Chest films 05/05/2017, 06/29/2017 EXAM PARAMETERS: NUMBER OF VIEWS: two views TECHNIQUE: Digital Frontal and Lateral radiographic views of the chest acquired. RADIATION DOSE: NA LIMITATIONS: none FINDINGS: LUNGS AND PLEURA: Chronic increased interstitial markings. No acute infiltrates. No pleu ral effusion. No pneumothorax. Hyperinflation with flattening of the hemidiaphragms. MEDIASTINUM AND HILAR STRUCTURES: No masses or contour abnormalities. HEART AND VASCULAR STRUCTURES: Heart normal size. No evidence for failure. BONES: No acute findings. HARDWARE: None in the chest. OTHER: No other significant finding. IMPRESSION: Obstructive lung disease with hyperinflation. Stable chronic interstitial disease. No acute findings TECHNICAL DOCUMENTATION: JOB ID: [id number] [employer]- All Rights Reserved Reading location - IP/workstation name: [email or web address]
== END ==
LOC: OD 10:54
PROVIDERS: ATTEND Family Medicine
DX: R05 Cough (principal); J44.9 Chronic obstructive pulmonary disease, unspecified
CPT/HCPCS: 71046

== ENCOUNTER → 2020-02-09 | Outpatient (CLI) | payer MEDICARE, OTHER ==
--- NOTE | 2020-02-09 14:49 | RADIOLOGY REPORT (SQ) ---
EXAM DESCRIPTION: CT CHEST WITHOUT IMAGES COMPLETED DATE/TIME: 02/09/2020 1:31 pm REASON FOR STUDY: (R06.02)SHORTNESS OF BREATH R06.02 SHORTNESS OF BREATH J45.909 UNSPECIFIED ASTHM A, UNCOMPLICATED COMPARISON: 12/18/2015. TECHNIQUE: CT scan performed of the chest without intravenous contrast. Images reviewed with lung, soft tissue and bone windows. Reconstructed coronal and sagittal MPR images reviewed. All images st ored on PACS. All CT scanners at this facility use dose modulation, iterative reconstruction, and/or weight based d osing when appropriate to reduce radiation dose to as low as reasonably achievable (ALARA). [facility]: Dose Right [facility]: CareDose [facility]: Dose Right [facility]: Teradose 4D [facility]: [employer] RADIATION DOSE: CT Rad equipment meets quality standard of care and radiation dose reduction techniq ues were employed. CTDIvol: 6.6 mGy. DLP: 273 mGy-cm. mGy. LIMITATIONS: No technical limitations. FINDINGS: LUNGS AND PLEURA: Emphysematous changes. Mild scarring. No masses, infiltrates, or pneum othorax. No pleural effusions or pleural calcifications. HILAR AND MEDIASTINAL STRUCTURES: Mild mediastinal adenopathy with lymph nodes measuring chest under 1 cm. No obvious aneurysm. HEART AND VASCULAR STRUCTURES: No aneurysm. No pericardial effusion. UPPER ABDOMEN: Small calculus in the left kidney. Limited exam. THYROID AND OTHER SOFT TISSUES: No masses. No adenopathy. BONES: No significant finding. HARDWARE: None in the chest. OTHER: No other significant findings. IMPRESSION: 1. CHRONIC EMPHYSEMATOUS CHANGES. MILD PULMONARY SCARRING. NO ACUTE FINDINGS. 2. STABLE MILD MEDIASTINAL ADENOPATHY, NONSPECIFIC. PRESENT ON PRIOR CHEST CT AND UNCHANGED TECHNICAL DOCUMENTATION: JOB ID: [id number] Quality ID # [id number]: Final reports with documentation of one or more dose reduction techniques (e.g., Au tomated exposure control, adjustment of the mA and/or kV according to patient size, use of iterative reconstruction technique) 2010 [employer]- All Rights Reserved Reading location - IP/workstation name: [email or web address]
--- NOTE | 2020-02-09 21:36 | XCELERA REPORT ---
[address] [address] Transthoracic Echocardiogram Report Name: ANUJA NANCE Age: 69 yrs Gender: Male : 1950 Patient Status: Outpatient Patient Location: RAD Study Date: 02/09/2020 02:19 PM Height: 69 in Weight: 155 lb BSA: 1.9 m2 Reason For Study: SOB Ordering Physician: YAMILETH MELÉNDEZ Performed By: Shayna Garza Interpretation Summary LEFT VENTRICLE: LV Systolic function: LVEF is felt to be within normal limits. Best estimate is approximately LVEF is 60 to 65%. LV Diastolic Function: Grade II diastolic dysfunction noted. Wall motion: No definite regional wall motion abnormalities are noted. Left ventricular chamber size: is within normal limit. Left ventricular wall thickness: is increased indicative of Mild LVH. RIGHT VENTRICLE: RV systolic function: is felt to be within normal limit. Right Ventricle Size: is within normal limits. LEFT ATRIUM size: WNL. RIGHT ATRIUM size: is within normal limit. INTER ATRIAL SEPTUM: No definite atrial septal defect noted however a small PFO could be missed. AORTIC ROOT: seems to be within normal limits. ASCENDING AORTA: is not well visualized. INFERIOR VENA CAVA: was not well visualized. VALVES: MITRAL VALVE: Leaflets are mildly thickened. Mobility seems to be within normal limits. Mitral Regurgitation: Mild mitral regurgitation is noted. Mitral Stenosis: No mitral stenosis noted. Mitral valve prolapse: none noted. AORTIC VALVE: aortic valve seems thickened and mildly calcified but mobility seems well preserved. Aortic stenosis: No aortic stenosis noted. Aortic regurgitation: No aortic incompetence noted. TRICUSPID VALVE: mobility and structures within normal limit. Tricuspid stenosis: no tricuspid stenosis noted. Tricuspid regurgitation: Trace tricuspid regurgitation noted. Estimated RVSP: cannot be accurately commented upon but possibly at upper limit of normal. PULMONARY VALVE: was not well visualized but no significant abnormalities suspected. Pulmonary stenosis: no pulmonary stenosis noted. Pulmonary regurgitation: no significant pulmonary regurgitation noted. MASSES AND THROMBUS: No definite intracardiac thrombus or masses are noted. PERICARDIUM: No pericardial effusion was noted. IMPRESSION: 1. Normal LVEF. 2. Mild LVH noted. 3. Grade II [mild] Diastolic Dysfunction noted. 4. Mild mitral regurgitation noted. Aortic sclerosis noted. MMode/2D Measurements & Calculations RVDd: 2.8 cm LVIDd: 4.3 cm FS: 40.6 % Ao root diam: 3.2 cm IVSd: 0.95 cm LVIDs: 2.6 cm EDV(Teich): 83.1 ml LVPWd: 0.99 cm ESV(Teich): 23.6 ml Ao root area: 8.2 cm2 LA dimension: 3.5 cm EF(Teich): 71.6 % Doppler Measurements & Calculations MV E max vesta: MV P1/2t max vesta: Ao V2 max: LV V1 max P.2 cm/sec 61.3 cm/sec 137.8 cm/sec 3.8 mmHg MV A max vesta: MV P1/2t: 86.1 msec Ao max PG: LV V1 max: 76.7 cm/sec MVA(P1/2t): 2.6 cm2 7.6 mmHg 97.6 cm/sec MV E/A: 0.78 MV dec slope: 208.6 cm/sec2 MV dec time: 0.30 sec PA V2 max: PI end-d vesta: TR max vesta: MV P1/2t-pr_phl: 85.4 cm/sec 122.2 cm/sec 259.3 cm/sec 86.1 msec PA max PG: TR max P.9 mmHg 26.9 mmHg : YAMILETH MELÉNDEZ Shyamal
== END ==
LOC: RAD 12:57
PROVIDERS: ATTEND Internal Medicine Pulmonary Disease
DX: J45.909 Unspecified asthma, uncomplicated (principal); R06.02 Shortness of breath; R06.00 Dyspnea, unspecified
CPT/HCPCS: 71250; 93306

== ENCOUNTER → 2020-02-15 | Outpatient (CLI) | payer MEDICARE, OTHER ==
[~2020-02-15] MED LIST changes: +ALBUTEROL SULFATE 0.083% NEB 2.5 MG/3 ML AMPUL NEB ONE; -CEFAZOLIN 2 GM/D5W RTU 2 GM/50 ML RTUPB IV ONE; -CEFAZOLIN 2 GM/D5W RTU 2 GM/50 ML RTUPB IV PRN
--- NOTE | 2020-02-16 11:30 | Pulmonary Function Test ---
Pulmonary Function Test Date of Procedure:: 02/15/20 INDICATION:: Dyspnea Referring Provider: Dr. Kay Malloy Pastoral Worker: Clara Bojorquez, TELEMARKETER, TRANSFUSION AIDE - Report Spirometry: Spirometry: pre-FVC: 4.16 L 106% post-FVC: 4.27 L 109% pre-FEV:1 2.04 L 66% post-FEV1: 2.05 L 66% pre-FEV1/FVC %: 49 post-FEV1/FVC%: 48 predicted: 79 [id number]%: 0.45 L 14% [id number]%: 0.45 L 14% Lung Volume: Total lung capacity: 5.71 L 91% Vital capacity: 4.16 L 106% Inspiratory capacity: 2.48 L FRC N2: 3.25 L 86% ERV: 0.45 L RV: 1.55 L 63% RV/TLC %:: 27 predicted 40 Diffusion Capactity: DLCO: 17.0 89% DLCO/VA: 3.01 81% Impression: Severe obstructive ventilatory defect. Insignificant response to bronchodilator therapy. This does not preclude a clinical trial of bronchodilator therapy. No restrictive ventilatory defect. No hyperinflation or air trapping. Normal diffusion capacity.
== END ==
LOC: RT 07:47
PROVIDERS: ATTEND Internal Medicine Pulmonary Disease
DX: J45.909 Unspecified asthma, uncomplicated (principal); R06.02 Shortness of breath
CPT/HCPCS: 94729; 94727; 94060; A9270; J7613

== ENCOUNTER 2020-05-22 10:24 | Day surgery (SDC) | payer MEDICARE, OTHER ==
--- NOTE | 2020-05-18 11:09 | RADIOLOGY REPORT (SQ) ---
EXAM DESCRIPTION: CHEST 2 VIEWS IMAGES COMPLETED DATE/TIME: 05/18/2020 10:40 am REASON FOR STUDY: PRE OP COMPARISON: AP view of the chest from 08/17/2018. EXAM PARAMETERS: NUMBER OF VIEWS: Two views. TECHNIQUE: PA and lateral views of the chest were obtained. RADIATION DOSE: NA LIMITATIONS: None. FINDINGS: LUNGS AND PLEURA: COPD with biapical pleuroparenchymal thickening. There is no consolidat ion, pleural effusion or pneumothorax. MEDIASTINUM AND HILAR STRUCTURES: No mediastinal or hilar contour abnormality. HEART AND VASCULAR STRUCTURES: The cardiac silhouette and pulmonary vasculature are within normal cisneros its. BONES: No acute findings. HARDWARE: None in the chest. OTHER: No other finding. IMPRESSION: COPD without a superimposed acute cardiopulmonary process. TECHNICAL DOCUMENTATION: JOB ID: [id number] [employer]- All Rights Reserved Reading location - IP/workstation name: [email or web address]
[2020-05-18 11:23] LABS: HEMATOCRIT 39.3 % (37.9-51.0); HEMOGLOBIN 13.4 g/dL (13.5-17.0); MEAN CORPUSCULAR HGB CONC 34.2 g/dL (32.0-36.0); MEAN CORPUSCULAR VOLUME 85 fl (80-97); PLATELET COUNT 182 10^3/uL (150-450); RED BLOOD COUNT 4.64 10^6/uL (4.35-5.55); WHITE BLOOD COUNT 9.8 10^3/uL (4.0-10.5)
[2020-05-18 11:38] LABS: APPEARANCE,URINE SLIGHTLY-CLOUDY; BILIRUBIN,URINE NEGATIVE (NEGATIVE); COLOR,URINE YELLOW; GLUCOSE, URINE NEGATIVE (NEGATIVE); KETONES,URINE NEGATIVE (NEGATIVE); LEUKOCYTE ESTERASE,URINE LARGE (NEGATIVE); NITRITE,URINE NEGATIVE (NEGATIVE); PROTEIN,URINE 30 mg/dL (NEGATIVE); URINE SPECIFIC GRAVITY 1.015; UROBILINOGEN,URINE NEGATIVE mg/dL (<2.0)
[2020-05-18 11:54] LABS: ANION GAP 7 (5-19); BLOOD UREA NITROGEN 15 mg/dL (7-20); CALCIUM 9.2 mg/dL (8.4-10.2); CARBON DIOXIDE 28 mmol/L (22-30); CHLORIDE 106 mmol/L (98-107); GLUCOSE 93 mg/dL (75-110); POTASSIUM 4.3 mmol/L (3.6-5.0)
--- NOTE | 2020-05-18 12:05 | EKG REPORT ---
SEVERITY:- NORMAL ECG - SINUS RHYTHM : Confirmed by: Kayode Stroud MD 18-May-2020 12:04:47
[~2020-05-22 10:24] MED LIST changes: -ALBUTEROL SULFATE 0.083% NEB 2.5 MG/3 ML AMPUL NEB ONE; +ALBUTEROL SULFATE HFA (90 MCG/PUFF) 8 GM MDI IH ONE; +CEFAZOLIN 2 GM/D5W RTU 2 GM/50 ML RTUPB IV PRN; +DEXAMETHASONE SOD PHOSPHATE INJ 4 MG/1 ML VIAL ONE; +FENTANYL CITRATE INJ/PF 100 MCG/2 ML AMPUL ONE; +LACTATED RINGERS 1000 ML IV PRN; +LIDOCAINE 0.5% INJ-PF (5 MG/ML) 50 ML SDV SUBCUT PRN; +LIDOCAINE 2% INJ-PF (20 MG/ML) 2 ML AMPUL ONE; +METOCLOPRAMIDE HCL INJ/PF 10 MG/2 ML SDV ONE; +MIDAZOLAM 2 MG/2 ML INJ ONE; +NORMAL SALINE 1000 ML (RENAL PATIENTS) IV PRN; +ONDANSETRON HCL INJ/PF 4 MG/2 ML SDV ONE; +PROPOFOL INJ 200 MG/20 ML VIAL IV ONE
[2020-05-22 12:00] LABS: INTERNATIONAL RATION (INR) 0.99; PROTHROMBIN TIME 13.3 SEC (11.4-15.4)
[2020-05-22] MEDS ORDERED: CEFAZOLIN 2 GM/D5W RTU 2 GM/50 ML RTUPB IV ONE (12:46)
[2020-05-22] MEDS ORDERED: ONDANSETRON 4 MG TAB.RAPDIS ONE (14:35)
[2020-05-22] MEDS ORDERED: HYDROMORPHONE HCL INJ/PF 2 MG/ML AMPULE ONE (14:45)
[2020-05-22] MEDS ORDERED: PROPOFOL INJ 200 MG/20 ML VIAL IV ONE (14:46)
[2020-05-22] MEDS ORDERED: MIDAZOLAM 2 MG/2 ML INJ ONE (14:46)
[2020-05-22] MEDS ORDERED: TRAMADOL HCL 50 MG TABLET PO PRN ×2 (15:05→16:25)
[2020-05-22] MEDS ORDERED: ONDANSETRON HCL 8 MG TABLET PO PRN (15:05)
--- NOTE | 2020-05-22 15:09 | Discharge Summary ---
Discharge Summary (SDC) - Discharge Final Diagnosis: Left 5th Ray Resection Date of Surgery: 05/22/20 Discharge Date: 05/22/20 Condition: Stable Treatment or Instructions: Schedule Follow Up w/ Dr. Hector Thompson @ [facility] to be seen in 10-14 days or as scheduled [place]: [place]: [place]: May remove dressing on postop day #3, keep incision covered and dry. May begin hand range of motion attempting to make a fist. Stool softener of choice when on pain medication. USE OF [id number] IBUPROFEN: Ibuprofen (Advil, Nuprin, Medipren, Motrin IB) is a medication for fever and pain control. In addition, it has anti- inflammatory effects which may be beneficial, especially in the treatment of injuries. It's best to take ibuprofen with food. Persons with ulcer disease or allergy to aspirin should notify their physician of this before taking ibuprofen. Ibuprofen can be given every four to six hours, for a total of four doses daily. Age Pain or fever dose Antiinflammatory dose 6-8 yr 200 mg (1 tab) 200 mg (1 tab) 9-11 yr 200 mg (1 tab) 200-400 mg (1-2 tab) 11-14 yr 200-400 mg (1-2 tab) 400 mg (2 tab) 15-adult 400 mg (2 tab) 600 mg (3 tab) ORAL NARCOTIC MEDICATION: You have been given a prescription for pain control. This medication is a narcotic. It's best taken with food, as nausea can result if taken on an empty stomach. Don't operate machinery or drive within six hours of taking this medication. Do not combine this medicine with alcohol, or with any medication which can cause sedation (such as cold tablets or sleeping pills) unless you get permission from the physician. Narcotics tend to cause constipation. If possible, drink plenty of fluids and eat a diet high in fiber and fruits. Please be aware that prescription narcotics also have the potential for abuse. People become addicted to these medications because of the general sense of wellbeing that they induce. This feeling along with a significant reduction in tension, anxiety, and aggression provides a stimulating seductive quality to these drugs. Once your pain is under control, we encourage you to discard your unused narcotics. Prescriptions: Tramadol HCl [Ultram 50 mg Tablet] 50 mg PO Q4HP PRN #45 tab PRN Reason: Respiratory Treatments at Home: Deep Breathing/Coughing Discharge Activity: Activity As Tolerated Report the Following to Your Physician Immediately: Shortness of Breath, Fever over 101 Degrees, Drainage-Yellow
[2020-05-22] MEDS ORDERED: BUPIVACAINE HCL 0.5 % INJ/PF 30 ML SDV ONE (15:30)
[2020-05-22] MEDS ORDERED: FENTANYL CITRATE INJ/PF 100 MCG/2 ML AMPUL IV PRN ×3 (15:33)
[2020-05-22] MEDS ORDERED: DIPHENHYDRAMINE HCL 50 MG/ML VIAL IV PRN (15:33)
[2020-05-22] MEDS ORDERED: OXYCODONE-ACETAMINOPHEN 5-325 MG TABLET PO PRN ×2 (15:33)
[2020-05-22] MEDS ORDERED: ONDANSETRON HCL INJ/PF 4 MG/2 ML SDV IV PRN (15:33)
[2020-05-22] MEDS ORDERED: MEPERIDINE HCL/PF INJ 25 MG/1 ML DISP.SYRIN IV PRN (15:33)
[2020-05-22] MEDS ORDERED: PROMETHAZINE HCL INJ 25 MG/1 ML VIAL IV PRN ×2 (15:33)
--- NOTE | 2020-05-22 16:24 | Operative Report ---
Operative Report DATE OF SURGERY: 05/22/20 PREOPERATIVE DIAGNOSIS: Left severe Dupuytren's contracture failed operative ma [place] POSTOPERATIVE DIAGNOSIS: Same OPERATION: Left fifth metacarpal ray resection SURGEON: FORD WINSLOW [employer] ADMINISTRATOR: LORI FIERRO - Required for exposure and wound closure. ANESTHESIA: GA COMPLICATIONS: None ESTIMATED BLOOD LOSS: Minimal PROCEDURE: Indication for above procedure: 69-year-old male with longstanding history of severe Dupuytren's contracture. Patient had underwent multiple procedures most recent procedure did provide some correction however patient's contracture returned with a 90 degree PIP joint contracture 90 degree MP joint contracture. After discussing treatment options patient states he preferred amputation. After discussing risk and benefits of amputation alternative treatment options decision was made to proceed with operative intervention. Procedure In Detail: Patient was seen and evaluated in the preoperative holding area. The LEFT upper extremity was initialized and marked. Patient received 2g of Ancef IV for bacterial prophylaxis. Patient was taken back to the operative room where transferred to the operative table and placed under general anesthesia. Once they were adequately anesthetized a nonsterile tourniquet was placed on the up per extremity. A surgical team debriefing was performed ensuring all instrumentation was available, the surgical procedure was discussed with possible concerns reviewed. The upper extremity was prepped with chlorhexidine and alcohol and draped in a sterile fashion. A timeout was done identifying correct patient, procedure and extremity everyone in attendance agree with this and verbalized no concerns. The extremity was exsanguinated the tourniquet was inflated to 250 mmHg. Longitudinal skin incision was made dorsally and chevron shaped incision was made volarly. Blunt dissection was performed posteriorly and the dorsal veins were identified and coagulated bipolar cautery. The extremes extensor tendons were then released proximally. Sharp dissection was performed distally along the fifth metacarpal base distal to the FCU/ECU insertion. Osteotomy was performed to the fifth metacarpal. Soft tissues including interossei and abductor pollicis brevis. Attention then turned volarly. Radial and ulnar neurovascular bundles were identified. Proper radial digital nerve to the small finger was identified and released retracted back into the interossei muscle of the ulnar digital nerve to the ring finger was salvaged. Ulnar neurovascular bundles were identified and coagulated with bipolar cautery with the digital nerve released. The FDP/FDS along with the volar plate was then released. Periosteal elevator was utilized to release remaining soft tissue including the intermetacarpal ligament. Once adequately released ray resection was complete and amputated portion was sent to pathology. The ulnar digital nerve and radial digital nerves were then placed deep to the interossei muscle interossei muscle was closed with interrupted 0 Vicryl suture protecting the nerve from postoperative neuroma. Soft tissue was then closed over top of the fifth metacarpal base as well to act as padding. Tourniquet was then deflated and peripheral bleeding was controlled with bipolar cautery. Wound was copiously irrigated with normal saline. Subcutaneous tissues were closed with interrupted 3-0 Monocryl suture. Skin was closed with interrupted 4-0 nylon suture. Soft dressing was applied. Sponge counts, instrument counts, needle counts were correct. Patient was then awoken from anesthesia. Transferred from the operating room table to the operating room stretcher. There was no intraoperative complications patient tolerated procedure well stable to PACU. Postop plan: Patient follow in the office in 2 weeks for wound check. Will begin range of motion immediately.
[2020-05-22] MEDS ORDERED: MORPHINE SULFATE 10 MG/ML INJ IV PRN (16:25)
[2020-05-22] MEDS ORDERED: PROMETHAZINE HCL INJ 25 MG/1 ML VIAL ONE (17:59)
[2020-05-22] MEDS ORDERED: PROMETHAZINE HCL INJ 25 MG/1 ML VIAL IV ONE (18:30)
[2020-05-22 19:12] VITALS: BP 133/80
== END 2020-05-22 18:55 | disposition home or self-care (01) ==
LOC: OROUT 10:24
PROVIDERS: ATTEND Orthopaedic Surgery
DX: M72.0 Palmar fascial fibromatosis [Dupuytren] (principal); M06.9 Rheumatoid arthritis, unspecified; D68.9 Coagulation defect, unspecified; Z01.812 Encounter for preprocedural laboratory examination; Z20.822 Contact with and (suspected) exposure to COVID-19; Z87.891 Personal history of nicotine dependence; J44.9 Chronic obstructive pulmonary disease, unspecified; Z99.81 Dependence on supplemental oxygen; I10 Essential (primary) hypertension; N40.0 Benign prostatic hyperplasia without lower urinary tract symptoms; Z79.899 Other long term (current) drug therapy; Z79.01 Long term (current) use of anticoagulants
CPT/HCPCS: 93005; 36415 ×2; 85027; 85610; 85730; 0241U; 80048; 81001; 71046; 93010; 26910; J2250; J3490; J1170; J2550; J2704; J0690; C9803; J1100; J2405; J2765; J3010; S0119